=== PATIENT | male | born 1970 | race Caucasian/White ===

== ENCOUNTER 2019-08-19 10:27 | Outpatient (CLI) | payer MEDICARE, MEDICAID, SELFPAY | END 2019-08-19 10:28 | disposition home or self-care (01) | LOC: CHSTREATRM 10:33 | PROVIDERS: PCP Family Medicine; Visit Provider Family Medicine | DX: K59.09 Other constipation (principal) | CPT/HCPCS: 99211; G0463 ==

== ENCOUNTER 2019-12-24 07:30 | Outpatient (CLI) | payer MEDICARE, SELFPAY ==
[2019-12-24 07:47] LABS: Basophils Absolute Auto 0.01 K/mm3 (0.00-0.10); Basophils Percent Auto 0.2 % (0.0-1.0); Eosinophils Absolute Auto 0.06 K/mm3 (0.02-0.50); Hematocrit 39.9 % (40.0-54.0); Hemoglobin 12.8 g/dL (14.0-18.0); Immature Granulocyte Absolute 0.02 K/mm3 (0.00-0.00); Immature Granulocyte Percent A 0.3 % (0.0-0.0); Lymphocytes Percent Auto 28.4 % (18.0-42.0); Mean Corpuscular HGB Conc 32.1 g/dL (32.0-36.0); Mean Corpuscular Hemoglobin 28.4 pg (27.0-31.0); Mean Corpuscular Volume 88.5 fL (78.0-102.0); Mean Platelet Volume 11.3 fl (8.7-11.0); Monocytes Absolute Auto 0.36 K/mm3 (0.10-0.90); Neutrophils Absolute Auto 3.8 K/mm3 (1.7-7.2); Neutrophils Percent Auto 64.1 % (50.0-70.0); Platelet Count Result 229 K/mm3 (150-420); Red Blood Count 4.51 M/mm3 (4.70-6.10); Red Cell Distribution Width 13.3 % (11.6-14.4)
[2019-12-24 08:51] LABS: Alanine Aminotransferase 20 U/L (16-63); Alkaline Phosphatase 91 U/L (46-116); Anion Gap 10.2 mmol/L (7-16); Aspartate Amino Transferase 15 U/L (15-37); Bilirubin,Total 0.2 mg/dL (0.00-1.00); Blood Urea Nitrogen 12 mg/dL (7-18); Calcium 8.9 mg/dL (8.5-10.1); Carbon Dioxide 32 mmol/L (21-32); Chloride 96 mmol/L (98-108); Cholesterol 164 mg/dL (0-200); Creatine Kinase 50 U/L (39-308); Estimated Glomerular Filt Rate > 60; Glucose 95 mg/dL (70-99); HDL Direct 65 mg/dL (40-60); LDL Cholesterol Calculated 84 mg/dL (<130); Osmolality Calculated 277 mOsm/kg (285-295); Potassium 4.2 mmol/L (3.5-5.1); Sodium 134 mmol/L (136-145); Thyroid Stimulating Hormone 2.77 uIU/mL (0.36-3.74); Total Protein 7.6 g/dL (6.4-8.2); Triglycerides 74 mg/dL (0-150)
[2019-12-24 12:55] LABS: Creatinine Urine 83.41 mg/dL (40-278); MALB Creatinine Ratio 4.7 mg/g (0-30)
== END 2019-12-24 07:31 | disposition home or self-care (01) ==
PROVIDERS: PCP Family Medicine; Visit Provider Family Medicine
DX: E78.2 Mixed hyperlipidemia (principal); I10 Essential (primary) hypertension
CPT/HCPCS: 36415; 80053; 80061; 82043; 82550; 84443; 85025

== ENCOUNTER 2020-05-19 07:50 | Outpatient (CLI) | payer MEDICARE, MEDICAID, SELFPAY ==
--- NOTE | ~2020-05-19 | XR_ITS ---
EXAMINATION: XR barium swallow DATE: 05/19/2020 09:22 INDICATION: Dysphagia. Chest pain. TECHNIQUE: The patient drank thick barium, gas-producing crystals, and thin barium. Fluoroscopic spot radiographs of the hypopharynx and esophagus were obtained. A total of 1668 images were recorded. Fl uoroscopy exposure time was 2.1 minutes. COMPARISON: None. FINDINGS: The pharynx is symmetric and without evidence of mass lesion or mucosal irregularity. The e sophagus is normal without mass or stricture. There is mild mass effect upon the posterior wall of th e cervical esophagus resulting from small anterior endplate osteophytes at C5-C6 and C6-C7. Esophagea l motility is normal. There is no hiatal hernia. There was no gastroesophageal reflux with provocativ e maneuvers. IMPRESSION: 1. Mild mass effect upon the posterior wall of the cervical esophagus resulting from anterior endplat e osteophytes in the lower cervical spine which is of doubtful clinical significance. Otherwise unrem arkable esophagram. Reviewed, dictated and finalized at location B. IMPRESSION: 1. Mild mass effect upon the posterior wall of the cervical esophagus resulting from anterior endplate osteophytes in the lower cervical spine which is of silverio btful clinical significance. Otherwise unremarkable esophagram.
--- NOTE | ~2020-05-19 | XR_ITS ---
XR chest 2V DATE: 05/19/2020 08:26 INDICATION: Chest pain. Dysphagia. TECHNIQUE: PA and lateral views COMPARISON: 04/07/2014 2 view chest FINDINGS: Normal heart size. No pulmonary infiltrate or consolidation, pleural effusion or pulmonary congestion or pneumothorax. Diffuse osteopenia. Mild chronic loss of height and anterior wedging of T7. Old rib fractures are sug gested on the right. IMPRESSION: No active cardiopulmonary disease Reviewed, dictated and finalized at location A.
== END 2020-05-19 07:51 | disposition home or self-care (01) ==
LOC: CHSIMG 07:53
PROVIDERS: PCP Family Medicine; Visit Provider Family Medicine
DX: R13.10 Dysphagia, unspecified (principal); R07.89 Other chest pain
CPT/HCPCS: 71046; 74220

== ENCOUNTER 2020-12-07 08:38 | Outpatient (CLI) | payer MEDICARE, SELFPAY ==
[2020-12-07 08:52] LABS: Basophils Absolute Auto 0.02 K/mm3 (0.00-0.10); Basophils Percent Auto 0.3 % (0.0-1.0); Eosinophils Absolute Auto 0.11 K/mm3 (0.02-0.50); Eosinophils Percent Auto 1.6 % (1.0-6.0); Hematocrit 39.4 % (40.0-54.0); Hemoglobin 12.6 g/dL (14.0-18.0); Immature Granulocyte Absolute 0.02 K/mm3 (0.00-0.00); Immature Granulocyte Percent A 0.3 % (0.0-0.0); Lymphocytes Absolute Auto 1.93 K/mm3 (1.10-4.50); Lymphocytes Percent Auto 28.6 % (18.0-42.0); Mean Corpuscular Hemoglobin 28.6 pg (27.0-31.0); Mean Corpuscular Volume 89.3 fL (78.0-102.0); Mean Platelet Volume 11.6 fl (8.7-11.0); Monocytes Absolute Auto 0.46 K/mm3 (0.10-0.90); Monocytes Percent Auto 6.8 % (2.0-11.0); Neutrophils Absolute Auto 4.2 K/mm3 (1.7-7.2); Neutrophils Percent Auto 62.4 % (50.0-70.0); Platelet Count Result 218 K/mm3 (150-420); Red Blood Count 4.41 M/mm3 (4.70-6.10); Red Cell Distribution Width 13.2 % (11.6-14.4); White Blood Count 6.8 K/mm3 (4.8-10.8)
[2020-12-07 09:39] LABS: Alanine Aminotransferase 27 U/L (16-63); Albumin Level 3.9 g/dL (3.4-5.0); Alkaline Phosphatase 103 U/L (46-116); Anion Gap 9 mmol/L (8-16); Aspartate Amino Transferase 11 U/L (15-37); Bilirubin,Total 0.2 mg/dL (0.00-1.00); Blood Urea Nitrogen 20 mg/dL (7-18); Calcium 9.4 mg/dL (8.5-10.1); Carbon Dioxide 29 mmol/L (21-32); Chloride 102 mmol/L (98-108); Cholesterol 177 mg/dL (0-200); Estimated Glomerular Filt Rate > 60; Glucose 98 mg/dL (70-99); HDL Direct 59 mg/dL (40-60); LDL Cholesterol Calculated 100 mg/dL (<130); Osmolality Calculated 292 mOsm/kg (285-295); Potassium 4.6 mmol/L (3.5-5.1); Sodium 140 mmol/L (136-145); Total Protein 8.4 g/dL (6.4-8.2); Triglycerides 89 mg/dL (0-150)
== END 2020-12-07 08:39 | disposition home or self-care (01) ==
LOC: CHSLAB 08:40
PROVIDERS: PCP Family Medicine; Visit Provider Family Medicine
DX: E78.2 Mixed hyperlipidemia (principal); I10 Essential (primary) hypertension
CPT/HCPCS: 36415; 80053; 80061; 85025

== ENCOUNTER 2021-03-06 08:05 | Outpatient (CLI) | payer MEDICARE, SELFPAY ==
[2021-03-06 08:43] LABS: Anion Gap 6 mmol/L (8-16); Blood Urea Nitrogen 18 mg/dL (7-18); Calcium 8.9 mg/dL (8.5-10.1); Carbon Dioxide 33 mmol/L (21-32); Chloride 104 mmol/L (98-108); Estimated Glomerular Filt Rate > 60; Glucose 104 mg/dL (70-99); Osmolality Calculated 297 mOsm/kg (285-295); Potassium 5.2 mmol/L (3.5-5.1); Sodium 143 mmol/L (136-145)
== END 2021-03-06 08:06 | disposition home or self-care (01) ==
LOC: CHSLAB 08:07
PROVIDERS: PCP Family Medicine; Visit Provider Family Medicine
DX: I10 Essential (primary) hypertension (principal)
CPT/HCPCS: 36415; 80048

== ENCOUNTER 2021-06-12 07:50 | Outpatient (CLI) | payer MEDICARE, SELFPAY ==
[2021-06-12 08:07] LABS: Basophils Absolute Auto 0.02 K/mm3 (0.00-0.10); Basophils Percent Auto 0.3 % (0.0-1.0); Eosinophils Absolute Auto 0.06 K/mm3 (0.02-0.50); Eosinophils Percent Auto 0.9 % (1.0-6.0); Hematocrit 41.5 % (40.0-54.0); Hemoglobin 12.7 g/dL (14.0-18.0); Immature Granulocyte Absolute 0.02 K/mm3 (0.00-0.00); Immature Granulocyte Percent A 0.3 % (0.0-0.0); Lymphocytes Absolute Auto 1.24 K/mm3 (1.10-4.50); Lymphocytes Percent Auto 19.3 % (18.0-42.0); Mean Corpuscular HGB Conc 30.6 g/dL (32.0-36.0); Mean Corpuscular Hemoglobin 27.8 pg (27.0-31.0); Mean Corpuscular Volume 90.8 fL (78.0-102.0); Mean Platelet Volume 11.4 fl (8.7-11.0); Monocytes Absolute Auto 0.55 K/mm3 (0.10-0.90); Monocytes Percent Auto 8.6 % (2.0-11.0); Neutrophils Absolute Auto 4.5 K/mm3 (1.7-7.2); Neutrophils Percent Auto 70.6 % (50.0-70.0); Platelet Count Result 216 K/mm3 (150-420); Red Blood Count 4.57 M/mm3 (4.70-6.10); Red Cell Distribution Width 13.8 % (11.6-14.4); White Blood Count 6.4 K/mm3 (4.8-10.8)
[2021-06-12 09:33] LABS: Alanine Aminotransferase 20 U/L (16-63); Albumin Level 3.5 g/dL (3.4-5.0); Alkaline Phosphatase 108 U/L (46-116); Anion Gap 10 mmol/L (8-16); Aspartate Amino Transferase 11 U/L (15-37); Bilirubin,Total 0.3 mg/dL (0.00-1.00); Blood Urea Nitrogen 20 mg/dL (7-18); Calcium 8.8 mg/dL (8.5-10.1); Carbon Dioxide 31 mmol/L (21-32); Chloride 103 mmol/L (98-108); Estimated Glomerular Filt Rate > 60; Glucose 95 mg/dL (70-99); Osmolality Calculated 300 mOsm/kg (285-295); Potassium 4.3 mmol/L (3.5-5.1); Sodium 144 mmol/L (136-145); Total Protein 7.7 g/dL (6.4-8.2)
[2021-06-12 09:53] LABS: Thyroid Stimulating Hormone 3.81 uIU/mL (0.36-3.74)
== END 2021-06-12 07:51 | disposition home or self-care (01) ==
LOC: CHSLAB 07:52
PROVIDERS: PCP Family Medicine; Visit Provider Family Medicine
DX: I10 Essential (primary) hypertension (principal)
CPT/HCPCS: 36415; 80053; 84443; 85025

== ENCOUNTER 2021-09-18 07:55 | Outpatient (CLI) | payer MEDICARE, SELFPAY ==
[2021-09-18 08:25] LABS: Basophils Absolute Auto 0.01 K/mm3 (0.00-0.10); Basophils Percent Auto 0.2 % (0.0-1.0); Eosinophils Absolute Auto 0.07 K/mm3 (0.02-0.50); Eosinophils Percent Auto 1.2 % (1.0-6.0); Hematocrit 40.3 % (40.0-54.0); Hemoglobin 12.5 g/dL (14.0-18.0); Immature Granulocyte Absolute 0.02 K/mm3 (0.00-0.00); Immature Granulocyte Percent A 0.4 % (0.0-0.0); Lymphocytes Absolute Auto 1.84 K/mm3 (1.10-4.50); Lymphocytes Percent Auto 32.6 % (18.0-42.0); Mean Corpuscular Hemoglobin 28.1 pg (27.0-31.0); Mean Corpuscular Volume 90.6 fL (78.0-102.0); Mean Platelet Volume 11.8 fl (8.7-11.0); Monocytes Absolute Auto 0.35 K/mm3 (0.10-0.90); Monocytes Percent Auto 6.2 % (2.0-11.0); Neutrophils Absolute Auto 3.4 K/mm3 (1.7-7.2); Neutrophils Percent Auto 59.4 % (50.0-70.0); Platelet Count Result 202 K/mm3 (150-420); Red Blood Count 4.45 M/mm3 (4.70-6.10); Red Cell Distribution Width 14.6 % (11.6-14.4); White Blood Count 5.7 K/mm3 (4.8-10.8)
[2021-09-18 09:36] LABS: Alanine Aminotransferase 24 U/L (16-63); Albumin Level 3.6 g/dL (3.4-5.0); Alkaline Phosphatase 94 U/L (46-116); Anion Gap 8 mmol/L (8-16); Aspartate Amino Transferase 13 U/L (15-37); Bilirubin,Total 0.2 mg/dL (0.00-1.00); Blood Urea Nitrogen 22 mg/dL (7-18); Calcium 8.6 mg/dL (8.5-10.1); Carbon Dioxide 30 mmol/L (21-32); Chloride 105 mmol/L (98-108); Estimated Glomerular Filt Rate > 60; Free T4 Free Thyroxine 0.69 ng/dL (0.76-1.46); Glucose 95 mg/dL (70-99); Osmolality Calculated 299 mOsm/kg (285-295); Potassium 4.6 mmol/L (3.5-5.1); Prostate Specific Antigen 0.3 ng/mL (< OR = 4.0); Sodium 143 mmol/L (136-145); Thyroid Stimulating Hormone 5.25 uIU/mL (0.36-3.74); Total Protein 7.4 g/dL (6.4-8.2)
[2021-09-21 04:43] LABS: Thyroglobulin 3.4 ng/mL (2.8-40.9); Thyroglobulin Antibodies <1 IU/mL (<=1)
== END 2021-09-18 07:56 | disposition home or self-care (01) ==
LOC: CHSLAB 07:57
PROVIDERS: PCP Family Medicine; Visit Provider Family Medicine
DX: R94.6 Abnormal results of thyroid function studies (principal); I10 Essential (primary) hypertension; Z12.5 Encounter for screening for malignant neoplasm of prostate
CPT/HCPCS: 36415; 80053; 84153; 84432; 84439; 84443; 85025; 86800; G0103

== ENCOUNTER 2021-09-19 13:31 | Outpatient (NON) | payer MEDICARE, SELFPAY ==
[2021-09-19 14:01] LABS: Creatinine Urine 149.13 mg/dL (40-278); MALB Creatinine Ratio 8.7 mg/g (0-30); Microalbumin Urine Random < 13.0 mg/L
== END 2021-09-19 13:32 | disposition home or self-care (01) ==
LOC: CHSLAB 13:33
PROVIDERS: Visit Provider Family Medicine
DX: I10 Essential (primary) hypertension (principal)
CPT/HCPCS: 82043

== ENCOUNTER 2021-10-28 17:22 | Emergency (ER) | payer MEDICARE, MEDICAID, SELFPAY ==
--- NOTE | ~2021-10-28 | XR_ITS ---
EXAMINATION: XR chest 2V Exam Date/Time: 10/28/2021 17:50 CDT CLINICAL HISTORY: LT sided chest pain. hx smoker/emphysema Comparison: 05/19/2020. RESULT: Lines, tubes, and devices: None. Lungs and pleura: Clear. Cardiomediastinal silhouette: Stable cardiomediastinal silhouette. Other: No acute osseous or upper abdominal finding. IMPRESSION: No acute cardiopulmonary process. Reviewed, dictated and finalized at location K.
[2021-10-28 17:25] VITALS: BP 130/85; PULSE 72; RESP 20; TEMP 37
--- NOTE | 2021-10-28 17:33 | ED.CHESTPAIN ---
HPI - Chest Pain General Chief Complaint: Unspecified Stated Complaint: chest pain Time Seen by Provider: 10/28/21 17:33 Source: patient and RN notes reviewed Mode of arrival: ambulatory Limitations: no limitations History of Present Illness HPI narrative: patient started having some chest wall pain earlier this afternoon. He finally told them at the assisted living home that his chest was hurting. Staff there thought he had laid on it since he is always on that left side. He denies any other associated symptoms. No history of any previous heart disease. Does have history hyperlipidemia and hypertension. MD complaint: chest pain Onset (ago): hour(s) (3.5) Timing of current episode: constant Onset: during rest Pain location: left chest Pain radiation: none Severity: moderate Quality: aching and dull Relieving factors: nothing Treatment prior to arrival: none Related Data Home Medications Medication Instructions Recorded Confirmed aspirin 81 mg capsule 81 mg PO DAILY 05/10/21 05/22/21 benztropine 1 mg tablet 1 mg PO BID 05/10/21 05/22/21 carbamazepine 400 mg 400 mg PO Q12H 05/10/21 05/22/21 tablet,extended release,12 hr carvedilol 3.125 mg tablet 3.125 mg PO Q12H 05/10/21 05/22/21 docusate sodium 100 mg capsule 100 mg PO BID 05/10/21 05/22/21 famotidine 40 mg tablet 40 mg PO DAILY 05/10/21 05/22/21 loratadine 10 mg tablet 10 mg PO DAILY 05/10/21 05/22/21 lorazepam 1 mg tablet 1 mg PO BID PRN 05/10/21 05/22/21 olanzapine 20 mg tablet 20 mg PO DAILY 05/10/21 05/22/21 pravastatin 80 mg tablet 80 mg PO DAILY 05/10/21 05/22/21 sertraline 100 mg tablet 100 mg PO DAILY 05/10/21 05/22/21 sodium chloride 1 gram tablet 1,000 mg PO DAILY 05/10/21 05/22/21 Allergies Allergy/AdvReac Type Severity Reaction Status Date / Time No Known Allergies Allergy Verified 05/17/21 10:06 Review of Systems Review of Systems: All systems reviewed & are unremarkable except as noted in HPI and below Constitutional: Constitutional: Denies chills and Denies fever(s) Cardiovascular: Cardiovascular: Reports as per HPI and Denies diaphoresis Respiratory: Respiratory: Denies cough and Denies dyspnea Gastrointestinal: Gastrointestinal: Denies diarrhea, Denies nausea and Denies vomiting PMFSH Past Medical History Medical History History of depression History of high cholesterol History of hypertension History of seizure Social History Social History Smoking status: Former smoker Additional occupation/education comments: Disabled Exam Const: General: healthy appearing, no acute distress and alert Nutritional Appearance: well nourished Orientation/consciousness: patient oriented x3 HENMT: Head: normal to inspection Ears: external ears normal Eyes: Conjunctivae: conjunctivae normal Pupils: Equal, round and reactive pupils present EOM: EOMs intact bilaterally Neck: Neck: normal visual inspection Chest: Chest palpation & inspection: normal inspection of the chest and tenderness ( left anterior chest wall) Resp: Effort & Inspection: normal respiratory effort Auscultation: clear to auscultation bilaterally Cardio: Rate: regular rate Rhythm: regular rhythm GI: GI Palp: Yes Soft to palpation, No Tenderness to palpation present (GI) and No Guarding due to palpation present (GI) Auscultation: normal bowel sounds Back/Spine/Pelvis: Cervical Spine: cervical ROM normal Thoracic/Lumbar Spine: thoraco-lumbar ROM normal Skin: General skin exam: normal color Rashes: no rashes Neuro: General: patient oriented x3, moves all extremities, no focal motor deficits and CN's II-XI intact bilaterally Speech: normal speech Gait exam (Neuro): Normal gait present Extrem: General: normal to inspection Psych: Appearance: grossly normal and well kempt Mental Status: mental status grossly normal Affect: normal affect Attitude: coope
--- NOTE | 2021-10-28 17:35 | ECG_ITS ---
Measurements Intervals [place] Rate: 72 P: 33 NE: 148 QRS: 30 QRSD: 104 T: 45 QT: 370 QTc: 405 Interpretive Statements SINUS RHYTHM INTRAVENTRICULAR CONDUCTION DELAY ABNORMAL ECG NO PREVIOUS ECG AVAILABLE FOR COMPARISON Electronically Signed On 10-29-2021 15:48:52 CDT by Quoc Drew M.D.
[2021-10-28 17:54] VITALS: BP 118/80; PULSE 72; RESP 16; O2SAT 98
--- NOTE | 2021-10-28 17:55 | PC.NURSE ---
REFUSING IV, AWARE
[2021-10-28] MEDS: ASPIRIN 81 MG CHEWABLE TABLET 324 MG PO (18:00)
[2021-10-28 18:02] LABS: Basophils Absolute Auto 0.01 K/mm3 (0.00-0.10); Basophils Percent Auto 0.2 % (0.0-1.0); Eosinophils Percent Auto 1.8 % (1.0-6.0); Hematocrit 37.6 % (40.0-54.0); Hemoglobin 11.9 g/dL (14.0-18.0); Immature Granulocyte Absolute 0.01 K/mm3 (0.00-0.00); Immature Granulocyte Percent A 0.2 % (0.0-0.0); Lymphocytes Absolute Auto 2.08 K/mm3 (1.10-4.50); Lymphocytes Percent Auto 36.6 % (18.0-42.0); Mean Corpuscular HGB Conc 31.6 g/dL (32.0-36.0); Mean Corpuscular Hemoglobin 28.5 pg (27.0-31.0); Mean Platelet Volume 11.4 fl (8.7-11.0); Monocytes Absolute Auto 0.46 K/mm3 (0.10-0.90); Monocytes Percent Auto 8.1 % (2.0-11.0); Neutrophils Percent Auto 53.1 % (50.0-70.0); Platelet Count Result 190 K/mm3 (150-420); Red Blood Count 4.18 M/mm3 (4.70-6.10); Red Cell Distribution Width 14.2 % (11.6-14.4); White Blood Count 5.7 K/mm3 (4.8-10.8)
[2021-10-28 18:15] LABS: INR 1.1; Prothrombin Time 11.5 Seconds (9.50-12.10)
[2021-10-28 18:20] LABS: Alanine Aminotransferase 15 U/L (16-63); Albumin Level 3.4 g/dL (3.4-5.0); Alkaline Phosphatase 94 U/L (46-116); Anion Gap 7 mmol/L (8-16); Aspartate Amino Transferase 14 U/L (15-37); Bilirubin,Total 0.1 mg/dL (0.00-1.00); Blood Urea Nitrogen 16 mg/dL (7-18); Calcium 8.3 mg/dL (8.5-10.1); Carbon Dioxide 31 mmol/L (21-32); Chloride 99 mmol/L (98-108); Estimated CRCL calculation 108 ml/min; Estimated Glomerular Filt Rate > 60; Glucose 100 mg/dL (70-99); Osmolality Calculated 285 mOsm/kg (285-295); Sodium 137 mmol/L (136-145); Total Protein 7.2 g/dL (6.4-8.2); Troponin I 7.5 ng/L (0.00-60.4)
[2021-10-28 18:33] VITALS: BP 119/70; PULSE 72; RESP 18; TEMP 36.4; O2SAT 98
== END 2021-10-28 18:48 | disposition home or self-care (01) ==
PROVIDERS: Emergency Provider Emergency Medicine; PCP Family Medicine
DX: R07.89 Other chest pain (principal)
CPT/HCPCS: 36415; 71046; 80053; 84484; 85025; 85610; 93005; 99284; A9270

== ENCOUNTER 2022-09-16 14:45 | Outpatient (CLI) | payer MEDICARE, MEDICAID, SELFPAY ==
--- NOTE | ~2022-09-16 | XR_ITS ---
EXAMINATION: XR abdomen obstructive series DATE: 09/16/2022 15:08 INDICATION: Mid abdominal pain. Constipation. TECHNIQUE: Supine and upright views of the abdomen. FINDINGS: 01/05/2018 The visualized lung parenchyma is normal.. There is a nonobstructive bowel gas pattern. There is feca l impaction of the colon and rectum. There is no free air. IMPRESSION: 1. Fecal impaction of the colon and rectum. Reviewed, dictated and finalized at location B. BENDING MACHINE OPERATOR
== END 2022-09-16 14:46 | disposition home or self-care (01) ==
LOC: CHSIMG 14:47
PROVIDERS: PCP Family Medicine; Visit Provider Family Medicine
DX: R10.84 Generalized abdominal pain (principal); K56.41 Fecal impaction
CPT/HCPCS: 74019

== ENCOUNTER 2022-09-19 10:14 | Emergency (ER) | payer MEDICARE, MEDICAID, SELFPAY ==
--- NOTE | ~2022-09-19 | CT_ITS ---
EXAMINATION: CT brain wo con DATE: 09/19/2022 10:55 INDICATION: Headache after trauma. Status post recent fall. TECHNIQUE: Computed tomography (CT) of the head was performed without intravenous contrast. The dose- length product was 681.00 mGy-cm. Automated exposure control and iterative reconstruction technique were employed. COMPARISON: CT dated 03/31/2014 FINDINGS: Brain parenchymal volume is normal for age. No ventriculomegaly or midline shift. Basilar c isterns are patent. No acute intracranial hemorrhage, infarction, mass or mass effect. Basilar cister ns are patent. Paranasal sinuses and mastoids are pneumatized. There is intracranial atherosclerosis. IMPRESSION: 1. No acute intracranial abnormality. Reviewed, dictated and finalized at location L. ING MATCHER AND ASSEMBLER
--- NOTE | ~2022-09-19 | XR_ITS ---
XR knee LT 3V 09/19/2022 10:56 Indication: Left knee pain Procedure: 3 views left knee Comparison: No prior studies for comparison. Findings: No fracture, subluxation or dislocation. No significant joint effusion. No foreign bodies. Impression: 1: No acute fracture. Reviewed, dictated and finalized at location L. MACY TECHNICIAN ASSISTANT Impression: 1: No acute fracture.
--- NOTE | ~2022-09-19 | CT_ITS ---
EXAMINATION: CT cervical spine wo con DATE: 09/19/2022 10:54 INDICATION: Neck pain after recent fall TECHNIQUE: Computed tomography (CT) of the cervical spine was performed without intravenous contrast. The dose-length product was 440 mGy-cm. Automated exposure control and iterative reconstruction tech [employer] were employed. COMPARISON: CT dated 03/31/2014 FINDINGS: Normal cervical alignment. There is mild degenerative disc disease at C5-6. Mild chronic an terior wedging of C6. Craniovertebral junction within normal limits. Odontoid process is normal. Mild chronic wedge deformity of C7. Mild superior endplate compression deformity of T2, likely chronic. M ild multilevel facet and uncinate hypertrophy no paraspinal soft tissue abnormality.. Mild dextrocurv ature of the cervical spine. IMPRESSION: 1. No acute abnormality of the cervical spine. 2: Mild compression deformities of C6, C7 and T2, likely chronic. Reviewed, dictated and finalized at location L. REPAIRER APPRENTICE
--- NOTE | ~2022-09-19 | CT_ITS ---
EXAMINATION: CT abdomen pelvis w con DATE: 09/19/2022 12:05 INDICATION: Right abdominal pain. TECHNIQUE: Computed tomography (CT) of the abdomen and pelvis was performed with 100 mL Omnipaque 350 intravenous contrast. Automated exposure control and iterative reconstruction technique were employe d. The dose-length product was 574.70 mGy-cm. COMPARISON: CT 01/17/2015 FINDINGS: The visualized portions of the lung bases demonstrate mild atelectasis. Bilateral pleural t hickening is noted. There are calcified pleural plaques on the right. The heart size is normal. No pe ricardial effusion. There is a small sliding hiatal hernia. The liver, gallbladder, spleen, pancreas, adrenal glands, and kidneys are normal. Stool distends the rectum. There is a large volume of stool in the colon. The appendix is not visualized. There are no pathologically enlarged lymph nodes. There is no free intraperitoneal fluid. There are old healed right rib fractures. There is mild thoracic a nd lumbar spondylosis. IMPRESSION: 1. Large volume of stool in the colon with distention of the rectum. Reviewed, dictated and finalized at location A. M1A1 TANK CREWMAN
[2022-09-19 10:15] VITALS: BP 125/73; PULSE 89; RESP 16; TEMP 36.9; O2SAT 97
[2022-09-19 10:21] VITALS: BP 125/73; PULSE 89; RESP 12; TEMP 36.9; O2SAT 97
--- NOTE | 2022-09-19 10:35 | ECG_ITS ---
Measurements Intervals [place] Rate: 85 P: 38 MI: 131 QRS: 38 QRSD: 117 T: 24 QT: 380 QTc: 453 Interpretive Statements SINUS RHYTHM INTRAVENTRICULAR CONDUCTION DELAY BORDERLINE ST-T WAVE ABNORMALITY- ANTEROLAT/INF LEADS BORDERLINE ECG COMPARED TO ECG 10/28/2021 17:54:56 ST-TWAVE ABNORMALITY NOW PRESENT Electronically Signed On 09-19-2022 11:14:14 MANAGER GLOBAL by Sergio Haskins D.O.
[2022-09-19 11:05] LABS: Basophils Absolute Auto 0.01 K/mm3 (0.00-0.10); Basophils Percent Auto 0.1 % (0.0-1.0); Eosinophils Absolute Auto 0.01 K/mm3 (0.02-0.50); Eosinophils Percent Auto 0.1 % (1.0-6.0); Hematocrit 36.4 % (40.0-54.0); Immature Granulocyte Absolute 0.03 K/mm3 (0.00-0.00); Immature Granulocyte Percent A 0.3 % (0.0-0.0); Lymphocytes Absolute Auto 1.14 K/mm3 (1.10-4.50); Lymphocytes Percent Auto 12.8 % (18.0-42.0); Mean Corpuscular Hemoglobin 29.4 pg (27.0-31.0); Mean Corpuscular Volume 89.2 fL (78.0-102.0); Mean Platelet Volume 11.8 fl (8.7-11.0); Monocytes Absolute Auto 0.61 K/mm3 (0.10-0.90); Monocytes Percent Auto 6.9 % (2.0-11.0); Neutrophils Absolute Auto 7.1 K/mm3 (1.7-7.2); Neutrophils Percent Auto 79.8 % (50.0-70.0); Platelet Count Result 227 K/mm3 (150-420); Red Blood Count 4.08 M/mm3 (4.70-6.10); Red Cell Distribution Width 13.3 % (11.6-14.4); White Blood Count 8.9 K/mm3 (4.8-10.8)
[2022-09-19] MEDS: TETANUS,DIPHTHERIA,AC PERTUSSIS ADULT 0.5 ML (ADACEL) IM (11:16)
[2022-09-19] MEDS: KETOROLAC 30 MG/ML VIAL (*BKC) IV PUSH (11:17)
--- NOTE | 2022-09-19 11:23 | PC.NURSE ---
Wounds on both legs cleaned with wound spray and hydrogen peroxide 1105
[2022-09-19 11:24] LABS: Alanine Aminotransferase 17 U/L (16-63); Alkaline Phosphatase 110 U/L (46-116); Anion Gap 9 mmol/L (8-16); Aspartate Amino Transferase 16 U/L (15-37); Bilirubin,Total 0.4 mg/dL (0.00-1.00); Blood Urea Nitrogen 19 mg/dL (7-18); Carbon Dioxide 29 mmol/L (21-32); Chloride 103 mmol/L (98-108); Estimated CRCL calculation 92 ml/min; Estimated Glomerular Filt Rate > 60; Glucose 109 mg/dL (70-99); INR 1.1; Lipase 45 U/L (16-77); Osmolality Calculated 295 mOsm/kg (285-295); Partial Thromboplastin Time 27.8 SEC (23.90-30.70); Potassium 4.7 mmol/L (3.5-5.1); Prothrombin Time 12.2 Seconds (9.50-12.10); Sodium 141 mmol/L (136-145)
[2022-09-19 11:28] LABS: Lactic Acid Reflex 1.5 mmol/L (0.4-2.0)
[2022-09-19 12:18] VITALS: BP 142/92; PULSE 86; RESP 12; O2SAT 97
--- NOTE | 2022-09-19 12:19 | PC.NURSE ---
Second attempt on collecting urine specimen 1213
--- NOTE | 2022-09-19 12:59 | ED.FALL ---
HPI - Fall General Chief Complaint: Fall Stated Complaint: leg injury Time Seen by Provider: 09/19/22 10:20 Source: patient and EMS Mode of arrival: ambulatory Limitations: no limitations History of Present Illness HPI Narrative: This is a 52-year-old gentleman from [facility] presents after he had a fall earlier this morning after he slipped in the bathroom and causing some neck pain. Otherwise no symptoms prior to his fall I no nausea vomiting no headache no blurry vision no palpitations no chest pain no shortness of breath. The patient has a history of depression hypertension, and has had some lower abdominal discomfort and his primary had ordered an abdominal CT scan with contrast stat, but since the patient presented to the ER abdominal CT was ordered and performed here. There is no dysuria no flank pain no hematuria no fever chills. Patient has been having episodes of constipation. MD complaint: fall Onset (ago): hour(s) Fall from: standing Fall witnessed: no Place fall occurred: [facility] Loss of consciousness: none Prolonged down time: no Context: tripped/slipped Location of injury: head Severity: mild Severity scale (1-10): 6 Related Data Home Medications Medication Instructions Recorded Confirmed aspirin 81 mg capsule 81 mg PO DAILY 05/10/21 09/19/22 benztropine 1 mg tablet 1 mg PO BID 05/10/21 09/19/22 carbamazepine 400 mg 400 mg PO Q12H 05/10/21 09/19/22 tablet,extended release,12 hr (Tegretol XR) carvedilol 3.125 mg tablet (Coreg) 3.125 mg PO Q12H 05/10/21 09/19/22 docusate sodium 100 mg capsule 100 mg PO BID 05/10/21 09/19/22 (Colace) famotidine 40 mg tablet (Pepcid) 40 mg PO DAILY 05/10/21 09/19/22 loratadine 10 mg tablet 10 mg PO DAILY 05/10/21 09/19/22 lorazepam 1 mg tablet 1 mg PO BID PRN Anxiety 05/10/21 09/19/22 olanzapine 20 mg tablet (Zyprexa) 20 mg PO DAILY 05/10/21 09/19/22 pravastatin 80 mg tablet 80 mg PO DAILY 05/10/21 09/19/22 sertraline 100 mg tablet (Zoloft) 100 mg PO DAILY 05/10/21 09/19/22 sodium chloride 1 gram tablet 1,000 mg PO DAILY 05/10/21 09/19/22 Allergies Allergy/AdvReac Type Severity Reaction Status Date / Time No Known Allergies Allergy Verified 09/19/22 10:20 Review of Systems Review of Systems: All systems reviewed & are unremarkable except as noted in HPI and below PMFSH Past Medical History Medical History History of depression History of high cholesterol History of hypertension History of seizure Social History Social History Smoking status: Former smoker Living arrangements: assisted living Occupation/Education: other Additional occupation/education comments: Disabled Exam Const: General: healthy appearing, no acute distress and alert Nutritional Appearance: well nourished Limitations: no limitations and altered mental status HENMT: Head: normal to inspection Face and sinus: normal facial exam Mouth: Yes Normal oral and palatal mucosa present Eyes: Conjunctivae: conjunctivae normal Pupils: Equal, round and reactive pupils present EOM: EOMs intact bilaterally Direct Ophthalmoscopy: no photophobia Neck: Neck: normal visual inspection Chest: Chest palpation & inspection: normal inspection of the chest Resp: Effort & Inspection: normal respiratory effort Auscultation: clear to auscultation bilaterally Cardio: Rate: regular rate Rhythm: regular rhythm GI: Auscultation: normal bowel sounds : General: Yes bladder normal to palpation Urinary Catheter: Urinary Catheter: patent and draining Back/Spine/Pelvis: Back: no CVA tenderness Skin: General skin exam: normal color Rashes: no rashes Wounds: no wounds Neuro: General: patient oriented x3 and moves all extremities Speech: normal speech Extrem: General: normal to inspection Psych: Affect: normal affect Course Course Emergency [facility]
[2022-09-19 13:15] VITALS: BP 131/87; PULSE 90; RESP 16; TEMP 36.6; O2SAT 97
== END 2022-09-19 13:30 | disposition home or self-care (01) ==
PROVIDERS: Emergency Provider Emergency Medicine
DX: S16.1XXA Strain of muscle, fascia and tendon at neck level, initial encounter (principal); K59.00 Constipation, unspecified; I10 Essential (primary) hypertension; F41.9 Anxiety disorder, unspecified; Z87.891 Personal history of nicotine dependence; Z79.82 Long term (current) use of aspirin; Z23 Encounter for immunization; W01.0XXA Fall on same level from slipping, tripping and stumbling without subsequent striking against object, initial encounter; Y92.121 Bathroom in nursing home as the place of occurrence of the external cause
CPT/HCPCS: 36415; 70450; 72125; 73562; 74177; 80053; 83605; 83690; 84484; 85025; 85610; 85730; 90471; 90715; 93005; 96374; 99284; J1885; Q9967

== ENCOUNTER 2023-01-20 06:56 | Outpatient (CLI) | payer MEDICARE, SELFPAY ==
[2023-01-20 07:30] LABS: Basophils Absolute Auto 0.02 K/mm3 (0.00-0.10); Basophils Percent Auto 0.4 % (0.0-1.0); Hematocrit 39.1 % (40.0-54.0); Hemoglobin 12.8 g/dL (14.0-18.0); Immature Granulocyte Absolute 0.01 K/mm3 (0.00-0.00); Immature Granulocyte Percent A 0.2 % (0.0-0.0); Lymphocytes Absolute Auto 1.49 K/mm3 (1.10-4.50); Mean Corpuscular HGB Conc 32.7 g/dL (32.0-36.0); Mean Corpuscular Hemoglobin 28.1 pg (27.0-31.0); Mean Corpuscular Volume 85.7 fL (78.0-102.0); Mean Platelet Volume 10.9 fl (8.7-11.0); Monocytes Absolute Auto 0.42 K/mm3 (0.10-0.90); Monocytes Percent Auto 8.5 % (2.0-11.0); Neutrophils Absolute Auto 2.8 K/mm3 (1.7-7.2); Neutrophils Percent Auto 56.9 % (50.0-70.0); Platelet Count Result 201 K/mm3 (150-420); Red Blood Count 4.56 M/mm3 (4.70-6.10); Red Cell Distribution Width 13.8 % (11.6-14.4)
[2023-01-20 08:44] LABS: Alanine Aminotransferase 19 U/L (16-63); Albumin Level 3.8 g/dL (3.4-5.0); Alkaline Phosphatase 98 U/L (46-116); Anion Gap 8 mmol/L (8-16); Aspartate Amino Transferase 12 U/L (15-37); Bilirubin,Total 0.4 mg/dL (0.00-1.00); Blood Urea Nitrogen 11 mg/dL (7-18); Calcium 8.3 mg/dL (8.5-10.1); Carbon Dioxide 29 mmol/L (21-32); Chloride 91 mmol/L (98-108); Estimated Glomerular Filt Rate > 60; Free T4 Free Thyroxine 0.94 ng/dL (0.76-1.46); Glucose 100 mg/dL (70-99); Osmolality Calculated 265 mOsm/kg (285-295); Sodium 128 mmol/L (136-145); Thyroid Stimulating Hormone 2.33 uIU/mL (0.36-3.74); Total Protein 7.3 g/dL (6.4-8.2)
== END 2023-01-20 06:57 | disposition home or self-care (01) ==
LOC: CHSLAB 06:58
PROVIDERS: PCP Family Medicine; Visit Provider Family Medicine
DX: I10 Essential (primary) hypertension (principal); E03.9 Hypothyroidism, unspecified
CPT/HCPCS: 36415; 80053; 84439; 84443; 85025

== ENCOUNTER 2023-01-23 13:43 | Outpatient (NON) | payer MEDICARE, MEDICAID, SELFPAY ==
[2023-01-23 14:01] LABS: Appearance Urine Clear (Clear); Bilirubin Urine Negative (Negative); Blood Urine Negative (Negative); Color Urine Light Yellow (Yellow); Glucose Urine UA Negative (Negative); Ketones Urine Negative (Negative); Leukocyte Esterase Ur Negative (Negative); Nitrate Urine Negative (Negative); Protein Urine Negative (Negative); Specific Grav Ur 1.015 (1.010-1.020)
[2023-01-23 14:04] LABS: Add Urine Microscopic? NO
[2023-01-23 14:07] LABS: Creatinine Urine 79.79 mg/dL (40-278); MALB Creatinine Ratio 16.2 mg/g (0-30); Microalbumin Urine Random < 13.0 mg/L
== END 2023-01-23 13:44 | disposition home or self-care (01) ==
LOC: CHSLAB 13:46
PROVIDERS: Visit Provider Family Medicine
DX: I10 Essential (primary) hypertension (principal)
CPT/HCPCS: 81003; 82043

== ENCOUNTER 2023-01-29 07:07 | Outpatient (CLI) | payer MEDICARE, SELFPAY ==
[2023-01-29 07:43] LABS: Anion Gap 9 mmol/L (8-16); Blood Urea Nitrogen 11 mg/dL (7-18); Calcium 8.5 mg/dL (8.5-10.1); Carbon Dioxide 29 mmol/L (21-32); Chloride 100 mmol/L (98-108); Estimated Glomerular Filt Rate > 60; Glucose 105 mg/dL (70-99); Osmolality Calculated 285 mOsm/kg (285-295); Potassium 4.1 mmol/L (3.5-5.1); Sodium 138 mmol/L (136-145)
== END 2023-01-29 07:08 | disposition home or self-care (01) ==
LOC: CHSLAB 07:09
PROVIDERS: PCP Family Medicine; Visit Provider Family Medicine
DX: I10 Essential (primary) hypertension (principal)
CPT/HCPCS: 36415; 80048

== ENCOUNTER 2023-04-01 07:02 | Outpatient (CLI) | payer MEDICARE, SELFPAY ==
[2023-04-01 07:51] LABS: Anion Gap 9 mmol/L (8-16); Blood Urea Nitrogen 17 mg/dL (7-18); Calcium 8.9 mg/dL (8.5-10.1); Carbon Dioxide 30 mmol/L (21-32); Chloride 101 mmol/L (98-108); Estimated Glomerular Filt Rate > 60; Glucose 108 mg/dL (70-99); Osmolality Calculated 292 mOsm/kg (285-295); Potassium 4.1 mmol/L (3.5-5.1); Sodium 140 mmol/L (136-145)
== END 2023-04-01 07:03 | disposition home or self-care (01) ==
LOC: CHSLAB 07:03
PROVIDERS: PCP Family Medicine; Visit Provider Family Medicine
DX: J44.9 Chronic obstructive pulmonary disease, unspecified (principal)
CPT/HCPCS: 36415; 80048

== ENCOUNTER 2023-07-28 06:48 | Inpatient (IN) | payer MEDICARE, MEDICAID, SELFPAY ==
[2023-07-28] VITALS (16 sets, daily range): BP systolic 90–124; BP diastolic 72–84; PULSE 87–107; RESP 14–18; TEMP 35.8–36.4; O2SAT 82–100
--- NOTE | ~2023-07-28 | XR_ITS ---
Right foot Technique: AP, oblique, and lateral views were obtained. Clinical History: Pain Findings: No acute fracture or dislocation is seen. Osseous alignment is anatomic. Joint spaces are p reserved without erosive or degenerative change. Soft tissues are unremarkable. Impression: Unremarkable right foot radiographs. Reviewed, dictated and finalized at location . RVISOR BEET END Impression: Unremarkable right foot radiographs.
--- NOTE | ~2023-07-28 | CT_ITS ---
EXAMINATION: CT abdomen pelvis wo con DATE: 08/03/2023 09:19 INDICATION: Lower abdominal pain TECHNIQUE: Computed tomography (CT) of the abdomen and pelvis was performed without intravenous contr ast. The dose-length product (DLP) was 471.21 mGy-cm. Automated exposure control and iterative recons truction technique were employed. COMPARISON: 07/28/2023 FINDINGS: Minimal dependent atelectasis is present in the lung bases. The heart size is normal. There are trace pleural effusions. There are calcified pleural plaques of the right lung base. The liver, spleen, pancreas, gallbladder, and adrenal glands are normal. The kidneys are unremarkable. There is calcified atherosclerosis of the aorta and many of the other arteries. No pathologically enlarged abd ominal or pelvic lymph nodes are identified. There is fecal impaction of the rectum with slight impro vement since the comparison examination. The colon remains distended with decrease in volume of colon ic stool. There is a short segment of wall thickening of the sigmoid colon which is decreased in pascale th since the comparison examination. There is mild lumbar spondylosis. IMPRESSION: 1. Persistent fecal impaction of the rectum with slight improvement. 2. Persistent colonic distention with decrease in volume of colonic stool. 3. Short segment of wall thickening of the sigmoid colon, decreased in length since the comparison ex amination, possible mild colitis. Recommend correlation with colonoscopy history. Reviewed, dictated and finalized at location F. RAL SALES MANAGER IMPRESSION: 1. Persistent fecal impaction of the rectum with slight improvement. 2. Persistent colonic distention with decrease in volume of colonic stool. 3. Short segment of wall thickening of the sigmoid colon, decreased in length s jean the comparison examination, possible mild colitis. Recommend correlation w ith colonoscopy history.
--- NOTE | ~2023-07-28 | CT_ITS ---
EXAMINATION:CT diagnostic chest wo con DATE: 07/28/2023 09:24 INDICATION: Rib fracture. Fall. Chest pain. TECHNIQUE: Computed tomography (CT) of the chest was performed without intravenous contrast. Automate d exposure control and iterative reconstruction technique were employed. The dose-length product (DLP ) was 166.10 mGy-cm. COMPARISON: Chest 2 views 07/28/23, chest CT 07/04/2016 FINDINGS: There is mild atelectasis bilaterally. There is mild scarring in the upper lobes. Calcified left lung nodules are consistent with old granulomatous disease. No pleural effusion. There is calci fied atherosclerosis of the aorta and many of the other arteries. The heart size is normal. There are coronary artery calcifications. No pericardial effusion. There are old healed fractures of right sec ond-12th ribs. There are multiple old healed left rib fractures. There are healing fractures of left third-fifth ribs with callus formation. IMPRESSION: 1. Healing subacute fractures of left third-fifth ribs. No acute rib fracture. Reviewed, dictated and finalized at location A. UME DESIGN TEACHER
--- NOTE | ~2023-07-28 | XR_ITS ---
Clinical Indication: Sepsis PA and lateral views of the chest: Comparison: 10/28/2021 Findings: The lungs are clear, without evidence of focal consolidation or pleural effusion. Cardiome diastinal silhouette is within normal limits. Probable fracture to lateral right fourth rib. Impression: Clear lungs. Suspected fracture at the lateral right fourth rib. Reviewed, dictated and finalized at [facility]. FOURTH Impression: Clear lungs. Suspected fracture at the lateral right fourth rib.
--- NOTE | ~2023-07-28 | XR_ITS ---
EXAMINATION: XR abdomen/kub 1V DATE: 07/31/2023 08:47 INDICATION: Abdominal distention. TECHNIQUE: A supine view of the abdomen on 2 radiographs was obtained. COMPARISON: Abdomen radiographs 09/16/2022, CT abdomen and pelvis 07/28/2023 FINDINGS: There is a large volume of stool in the colon. The colon is distended. The small bowel is n ormal in caliber. IMPRESSION: 1. Large volume of stool in the colon with distention of the colon, consistent with adynamic ileus. Reviewed, dictated and finalized at location A. MOLDER AND CASTER
--- NOTE | ~2023-07-28 | CT_ITS ---
EXAMINATION: CT abdomen pelvis w con DATE: 07/28/2023 08:34 INDICATION: Abdominal pain, diarrhea TECHNIQUE: Computed tomography (CT) of the abdomen and pelvis was performed with 100 CC Omnipaque 350 intravenous contrast. Automated exposure control and iterative reconstruction technique were employe d. Exam dose: 390.29 mGy-cm total exam DLP. COMPARISON: 09/19/2022 CT abdomen pelvis FINDINGS: There is minimal discoid atelectasis or scarring at the lung bases. Normal heart size. No p ericardial or pleural effusion. The gallbladder is distended but no gallbladder wall thickening or pericholecystic fluid or fat stran ding is noted. The liver, bile ducts, spleen, pancreas, pancreatic duct, and adrenal glands and kidneys are unremark able. There is prominent atherosclerotic calcification but normal caliber of the abdominal aorta and iliac arteries and femoral arteries. No intraperitoneal or retroperitoneal or pelvic mass lesion or adenopa thy or ascites. The urinary bladder is distended, extending up to the level of the umbilicus. No urinary bladder wall thickening is noted. Normal appendix. There is a very prominent amount of fecal material in the rectum and colon, with increased distention of the rectum since 09/19/2022, measuring up to 8.9 cm AP and 9.1 cm transverse dimension, full of sto ol. The sigmoid colon is distended as well, focal of stool, redundant, extending into the right subhe patic area. There is mild thickening of the rectal and sigmoid colon vang. No pneumatosis. No unenha nced bowel is evident. Normal caliber of the small bowel. Included skeletal structures are unremarkable. IMPRESSION: Prominent fecal distention of the rectum and colon, particularly sigmoid colon, with thi ckening of the wall of the rectum and sigmoid colon. There is increased fecal distention of the rectu m and colon since 09/19/2022 Prominently distended urinary bladder Reviewed, dictated and finalized at Location A. Reviewed, dictated and finalized at location B. OCUS DEVELOPER IMPRESSION: Prominent fecal distention of the rectum and colon, particularly s igmoid colon, with thickening of the wall of the rectum and sigmoid colon. Ther e is increased fecal distention of the rectum and colon since 09/19/2022 Prominently distended urinary bladder
--- NOTE | ~2023-07-28 | XR_ITS ---
EXAM: XR foot RT min 3V DATE: 07/29/2023 15:09 HISTORY: another fall, LATERAL right foot pain . COMPARISON: 07/28/2023. FINDINGS: Decreased mineralization. No fracture or dislocation. No lytic or blastic lesion. Mild sca ttered degenerative changes. No erosion or periosteal change. Soft tissues within normal limits. IMPRESSION: No acute osseous finding in the right foot. Reviewed, dictated and finalized at location K. N SUPERVISOR
--- NOTE | 2023-07-28 07:03 | ED.WEAKNESS ---
HPI - Weakness General Chief complaint: Weakness Stated complaint: SICK CASE Time Seen by Provider: 07/28/23 06:50 History of Present Illness HPI Narrative: Patient is a 53 year old male with psychiatric history here from a assisted with diarrhea. Patient notes that he has been feeling sick for about 3 days. Notes multiple episodes of diarrhea including one upon arrival to the ED. He additionally notes cough, unsure if he has had a fever, chills, runny nose. He has had some associated abdominal pain, believes it is around his umbilicus and suprapubically. Denies chest pain. Endorses occasionally feeing short of breath but has not experienced any of this recently. Denies cardiac history. Unsure of sick contacts. He has been taking peptobismol, unsure if it has helped. Related Data Home Medications Medication Instructions Recorded Confirmed aspirin 81 mg capsule 81 mg PO DAILY 05/10/21 07/28/23 benztropine 1 mg tablet 1 mg PO BID 05/10/21 07/28/23 carbamazepine 400 mg 400 mg PO Q12H 05/10/21 07/28/23 tablet,extended release,12 hr (Tegretol XR) carvedilol 3.125 mg tablet (Coreg) 3.125 mg PO Q12H 05/10/21 07/28/23 docusate sodium 100 mg capsule 100 mg PO BID 05/10/21 07/28/23 (Colace) famotidine 40 mg tablet (Pepcid) 40 mg PO DAILY 05/10/21 07/28/23 loratadine 10 mg tablet 10 mg PO DAILY 05/10/21 07/28/23 lorazepam 1 mg tablet 1 mg PO BID PRN Anxiety 05/10/21 07/28/23 olanzapine 20 mg tablet (Zyprexa) 20 mg PO DAILY 05/10/21 07/28/23 pravastatin 80 mg tablet 80 mg PO DAILY 05/10/21 07/28/23 sertraline 100 mg tablet (Zoloft) 100 mg PO DAILY 05/10/21 07/28/23 sodium chloride 1 gram tablet 1,000 mg PO DAILY 05/10/21 07/28/23 Allergies Allergy/AdvReac Type Severity Reaction Status Date / Time No Known Allergies Allergy Verified 07/28/23 06:49 Review of Systems Review of Systems: All systems reviewed & are unremarkable except as noted in HPI and below PMFSH Past Medical History Medical History History of depression History of high cholesterol History of hypertension History of seizure Social History Social History Smoking status: Former smoker Living arrangements: assisted living Occupation/Education: other Additional occupation/education comments: Disabled Exam Narrative: GENERAL: Well-appearing, well-nourished, and in no acute distress. HEAD: Normocephalic, atraumatic. EYES: PERRLA and EOMI. ENT: Nares clear. Mucous membranes dry, dried light pink crusting on lips. NECK: Supple. CHEST: Clear to auscultation. No respiratory distress. HEART: Regular rate and rhythm. Normal peripheral pulses. ABDOMEN: Soft, suprapubic tenderness, nondistended. EXTREMITIES: Normal range of motion. Tenderness over the 3rd, 4th and 5th metatarsals with some overlying edema, no bruising or erythema. Strong DP pulse. Ankle non tender with Full ROM. SKIN: Warm, dry, no rash. NEURO: No focal deficits. Alert and oriented x3. Course Course Emergency Course: Chart review performed. Patient here for flu like symptoms. History of HTN, seizure, depression. Triage vitals show show tachycardia, hypotension. Patient seen and evaluated, in no acute distress. Dried mucous membranes, abdomen soft, mild tenderness suprapubically. Sepsis orders placed, will do CXR and CT abdomen pelvis. Viral swabs ordered. Will additionally do XR of R foot. Lab work reviewed. Leukocytosis at 17.9, BRENDAN present with a creatinine of 1.93, prior was 0.85. Lactic elevated at 4.4, receiving IVF. CRP elevated at 14.9. COVID, Influenza, RSV negative. C.diff negative. CT reviewed by myself, large stool burden with urinary retention. Awaiting formal read by radiology. Patient was able to urinate [address] was performed. Urine very dark, sample sent to lab. CK and salicylates added. CT shows fecal distention of rectum and colon with thicken
--- NOTE | 2023-07-28 07:05 | ECG_ITS ---
Measurements Intervals [place] Rate: 90 P: 5 WA: 134 QRS: 37 QRSD: 113 T: 34 QT: 363 QTc: 444 Interpretive Statements SINUS RHYTHM INTRAVENTRICULAR CONDUCTION DELAY DELAYED PRECORDIAL R/S TRANSITION NONSPECIFIC ST & T-WAVE ABNORMALITY- INF/LAT LEADS BORDERLINE ECG COMPARED TO ECG 09/19/2022 10:57:50 NO SIGNIFICANT CHANGES Electronically Signed On 07-28-2023 8:26:17 MACHINE PIE MAKER by Sergio Haskins D.O.
[2023-07-28 07:16] LABS: Basophils Absolute Auto 0.02 K/mm3 (0.00-0.10); Basophils Percent Auto 0.1 % (0.0-1.0); Immature Granulocyte Absolute 0.04 K/mm3 (0.00-0.00); Immature Granulocyte Percent A 0.2 % (0.0-0.0); Lymphocytes Absolute Auto 1.66 K/mm3 (1.10-4.50); Lymphocytes Percent Auto 9.3 % (18.0-42.0); Mean Corpuscular HGB Conc 32.6 g/dL (32.0-36.0); Mean Corpuscular Volume 88.8 fL (78.0-102.0); Mean Platelet Volume 12.5 fl (8.7-11.0); Monocytes Absolute Auto 1.98 K/mm3 (0.10-0.90); Monocytes Percent Auto 11.1 % (2.0-11.0); Neutrophils Absolute Auto 14.2 K/mm3 (1.7-7.2); Neutrophils Percent Auto 79.3 % (50.0-70.0); Platelet Count Result 286 K/mm3 (150-420); Red Blood Count 5.18 M/mm3 (4.70-6.10); Red Cell Distribution Width 14.1 % (11.6-14.4); White Blood Count 17.9 K/mm3 (4.8-10.8)
[2023-07-28 07:35] LABS: INR 1.3; Partial Thromboplastin Time 30.2 SEC (23.90-30.70); Prothrombin Time 14.3 Seconds (9.50-12.10)
[2023-07-28 07:53] LABS: Influenza A QL RT-PCR Negative (Negative); Influenza B QL RT-PCR Negative (Negative); RSV RNA, RT-PCR Negative (Negative); SARS-CoV-2 RNA PCR Negative (Negative)
--- NOTE | 2023-07-28 07:53 | PC.NURSE ---
REPORT FROM EDDIE SHERIFF. PT IS LYING ON STRETCHER IN EXAM ROOM WITH IVF INFUSING ORDERED WITHOUT DIFFICULTY. PT HAD A BM, PERICARE WAS PROVIDED. LIQUID, LOOSE STOOL NOTED WITH FOUL ODOR. PT HAS CRUSTED PEPTO BISMOL NOTED TO MOUTH. WILL CONTINUE TO MONITOR. WARM BLANKETS WERE PROVIDED.
[2023-07-28 08:05] LABS: Alanine Aminotransferase 16 U/L (16-63); Albumin Level 3.3 g/dL (3.4-5.0); Alkaline Phosphatase 79 U/L (46-116); Anion Gap 18 mmol/L (8-16); Aspartate Amino Transferase 16 U/L (15-37); Bilirubin,Total 0.4 mg/dL (0.00-1.00); Blood Urea Nitrogen 34 mg/dL (7-18); Calcium 8.1 mg/dL (8.5-10.1); Carbon Dioxide 20 mmol/L (21-32); Chloride 98 mmol/L (98-108); Estimated CRCL calculation 39 ml/min; Estimated Glomerular Filt Rate 37; Glucose 132 mg/dL (70-99); Osmolality Calculated 291 mOsm/kg (285-295); Potassium 3.8 mmol/L (3.5-5.1); Sodium 136 mmol/L (136-145); Total Protein 7.5 g/dL (6.4-8.2); Troponin I 6.5 ng/L (0.00-60.4)
[2023-07-28 08:06] LABS: Lipase 18 U/L (16-77)
[2023-07-28 08:06] LABS: CRP 14.9 mg/dL (0.0-0.9)
[2023-07-28 08:14] LABS: Lactic Acid Reflex 4.4 mmol/L (0.4-2.0)
[2023-07-28] MEDS: PIPERACILLIN/TAZ 4.5G/NS 100ML 4.5 GM/100 ML BAG IVPB (08:44)
--- NOTE | 2023-07-28 08:53 | PC.NURSE ---
PT VOIDED 700ML WITHOUT DIFFICULTY, DARK TEA COLORED URINE NOTED. IVF AND ABX ARE INFUSING WITHOUT DIFFICULTY. WILL CONTINUE TO MONITOR.
[2023-07-28 08:54] LABS: Appearance Urine Clear (Clear); Bilirubin Urine 3+ (Negative); Blood Urine Negative (Negative); Glucose Urine UA Trace (Negative); Ketones Urine Trace (Negative); Leukocyte Esterase Ur Trace LEU/UL (Negative); Nitrate Urine Positive (Negative); Protein Urine 1+ (Negative); Specific Grav Ur 1.025 (1.010-1.020); pH Urine 6.5 (5.0-8.0)
[2023-07-28 09:03] LABS: Magnesium 2.8 mg/dL (1.8-2.4)
[2023-07-28 09:08] LABS: Color Urine Dark Amber (Yellow)
[2023-07-28 09:09] LABS: Add Urine Microscopic? YES; Bacteria Urine Rare /hpf; RBC Urine 0-2 /hpf (0-2); Squamous Epithelial Cell Urine Rare /hpf (Few); WBC Urine 0-3 /hpf (0-3)
[2023-07-28 09:50] LABS: Creatine Kinase 78 U/L (39-308)
[2023-07-28 09:55] LABS: Salicylate 3.3 mg/dL (2.8-20.0)
[2023-07-28 10:10] LABS: Reflex Lactic Acid Yes or No Add Lactic
--- NOTE | 2023-07-28 10:10 | PC.NURSE ---
PT IS RESTING ON STRETCHER IN EXAM ROOM WITHOUT DISTRESS. IVF INFUSING ORDERED WITHOUT DIFFICULTY. PT DENIES ANY NEEDS OR COMPLAINTS. WILL CONTINUE TO MONITOR. PT IS AWAITING REPEAT LABS. VSS PER MONITOR.
[2023-07-28 10:37] LABS: Anion Gap 11 mmol/L (8-16); Blood Urea Nitrogen 33 mg/dL (7-18); Calcium 7.8 mg/dL (8.5-10.1); Carbon Dioxide 25 mmol/L (21-32); Chloride 101 mmol/L (98-108); Estimated CRCL calculation 50 ml/min; Estimated Glomerular Filt Rate 49; Glucose 119 mg/dL (70-99); Osmolality Calculated 292 mOsm/kg (285-295); Potassium 3.8 mmol/L (3.5-5.1); Sodium 137 mmol/L (136-145)
[2023-07-28 10:46] LABS: Lactic Acid 2.2 mmol/L (0.4-2.0)
--- NOTE | 2023-07-28 10:56 | PC.NURSE ---
MESSAGE LEFT WITH ANDREA BACON, PT'S CONTACT.
--- NOTE | 2023-07-28 11:45 | PC.NURSE ---
PT ADMITTED TO 226. [facility] PROVIDED ANOTHER SMALL DIARRHEA EPISODE WAS NOTED. LONGTERM CARE NOTIFIED.
[2023-07-28] MEDS: SODIUM CHLORIDE 0.9% IV 1,000 ML 100 ML IV CONT ×2 (12:15→22:11)
[2023-07-28] MEDS: BENZTROPINE MESYLATE 1 MG TABLET PO ×2 (14:15→21:14)
[2023-07-28] MEDS: PIPERACILLN/TAZ 3.375GM/NS50ML 3.375 GM/50 ML BAG IVPB ×2 (14:15→19:58)
--- NOTE | 2023-07-28 14:31 | PM.IMHP ---
H&P: HPI History of Present Illness Date/Time: 07/28/23 14:31 Chief Complaint: Abdominal pain and diarrhea, fall right foot pain Narrative: This is a 53-year-old male patient resident of a half-way setting who was brought to the emergency department after a fall with right foot pain. Patient also complaining of abdominal pain with diarrhea. He has a history of chronic constipation, intellectual delay, depression, hyperlipidemia hypertension and seizure disorder. Patient reports that his left side of his abdomen has been hurting for the last couple of days and he has been having several episodes of diarrhea. He does not recall the last time he had solid stool. Patient denies chest pain difficulty breathing. He states he has not been as hungry or drinking as much recently. Patient reports pain and swelling to his right foot after fall today. He denies any other injury. Workup in the emergency department was significant for elevated white blood cell count, elevated lactic acid, elevated creatinine with an BRENDAN. Review of Systems Review of Systems: All systems reviewed & are unremarkable except as noted in HPI and below PMFSH Past Medical History Medical History History of depression History of high cholesterol History of hypertension History of seizure Social History Social History Smoking status: Former smoker Living arrangements: assisted living Occupation/Education: other Additional occupation/education comments: Disabled Meds Home Medications and Allergies Home Medications Medication Instructions Recorded Confirmed Type aspirin 81 mg capsule 81 mg PO DAILY 05/10/21 07/28/23 History benztropine 1 mg tablet 1 mg PO BID 05/10/21 07/28/23 History carvedilol 3.125 mg tablet (Coreg) 3.125 mg PO QAM 05/10/21 07/28/23 History docusate sodium 100 mg capsule 100 mg PO BID 05/10/21 07/28/23 History (Colace) famotidine 40 mg tablet (Pepcid) 40 mg PO DAILY 05/10/21 07/28/23 History loratadine 10 mg tablet 10 mg PO DAILY 05/10/21 07/28/23 History lorazepam 1 mg tablet 1 mg PO BID PRN Anxiety 05/10/21 07/28/23 History pravastatin 80 mg tablet 80 mg PO DAILY 05/10/21 07/28/23 History sertraline 100 mg tablet (Zoloft) 100 mg PO DAILY 05/10/21 07/28/23 History sodium chloride 1 gram tablet 1,000 mg PO DAILY 05/10/21 07/28/23 History carbamazepine 200 mg tablet 400 mg HS 07/28/23 07/28/23 History Allergies Allergy/AdvReac Type Severity Reaction Status Date / Time No Known Allergies Allergy Verified 07/28/23 06:49 Vital Signs Vital Signs - 24 hr 07/28/23 06:48 07/28/23 07:32 07/28/23 07:51 Temperature 35.8 C L Pulse Rate 107 H 88 Respiratory Rate 18 Blood Pressure 90/72 L 91/74 L Pulse Oximetry 94 99 97 Oxygen Delivery Room Air Fraction of Inspired Oxygen 07/28/23 07:52 07/28/23 08:00 07/28/23 08:07 Temperature Pulse Rate 90 Respiratory Rate 18 Blood Pressure 102/75 Pulse Oximetry 97 98 99 Oxygen Delivery Room Air Fraction of Inspired Oxygen 07/28/23 08:43 07/28/23 08:46 07/28/23 09:00 Temperature Pulse Rate Respiratory Rate Blood Pressure 106/74 Pulse Oximetry 82 L 100 100 Oxygen Delivery Fraction of Inspired Oxygen 07/28/23 09:26 07/28/23 09:30 07/28/23 09:39 Temperature Pulse Rate Respiratory Rate Blood Pressure 106/75 Pulse Oximetry 100 99 100 Oxygen Delivery Fraction of Inspired Oxygen 07/28/23 10:49 07/28/23 14:00 Temperature 36.4 C L Pulse Rate 87 87 Respiratory Rate 14 14 Blood Pressure 124/84 Pulse Oximetry 98 97 Oxygen Delivery Room Air Room Air Fraction of Inspired Oxygen 98 Exam Narrative: GENERAL: Dehydrated-appearing, well-nourished, and in no acute distress. HEAD: Normocephalic, atraumatic. ENT:? Dry membranes. CHEST: Clear to auscultation.? No respiratory distres
--- NOTE | 2023-07-28 14:35 | PC.NURSE ---
Notified Jeremi SUTTON regarding the sepsis bullseye. No additional orders at this time.
--- NOTE | 2023-07-28 15:11 | PC.NURSE ---
SS enema given , 500ml water used. Pt had large diarrhea episode prior to enema. Red area noted toright hip. Pt educated regarding turning every 2 hours and sitting up. Buttocks are red . Right foot is swollen and brused from a fall prior to coming here.
[2023-07-28] MEDS: LACTULOSE 20 GM/30 ML UDC PO (17:00)
[2023-07-28] MEDS: BISACODYL 5 MG TABLET EC PO (17:12)
[2023-07-28] MEDS: DOCUSATE SODIUM 100 MG CAPSULE PO (17:12)
[2023-07-28] MEDS: carBAMazepine 200 MG TABLET 400 MG PO (21:11)
[2023-07-28] MEDS: carvediloL 3.125 MG TABLET PO (21:12)
[2023-07-29] VITALS: BP 106/74; PULSE 94; RESP 17; TEMP 37.3; O2SAT 97
[2023-07-29] MEDS: PIPERACILLN/TAZ 3.375GM/NS50ML 3.375 GM/50 ML BAG IVPB ×2 (01:31→08:46)
[2023-07-29 08:00] VITALS: BP 104/68; PULSE 93; RESP 14; TEMP 36.7; O2SAT 98
[2023-07-29] MEDS: ENOXAPARIN 40 MG/0.4 ML SYRINGE SUB-Q (08:50)
[2023-07-29] MEDS: SODIUM CHLORIDE 500 MG TABLET 1000 MG PO (08:51)
[2023-07-29] MEDS: DOCUSATE SODIUM 100 MG CAPSULE PO ×2 (08:51→17:30)
[2023-07-29] MEDS: LACTULOSE 20 GM/30 ML UDC PO (08:51)
[2023-07-29] MEDS: SERTRALINE HCL 50 MG TABLET 100 MG PO (08:51)
[2023-07-29] MEDS: LORATADINE 10 MG TABLET PO (08:52)
[2023-07-29] MEDS: FAMOTIDINE 20 MG TABLET 40 MG PO (08:52)
[2023-07-29] MEDS: PRAVASTATIN SODIUM 20 MG TABLET 80 MG PO (08:52)
[2023-07-29] MEDS: ASPIRIN 81 MG ENTERIC TABLET PO (08:53)
[2023-07-29] MEDS: BENZTROPINE MESYLATE 1 MG TABLET PO ×2 (08:53→21:31)
[2023-07-29 09:01] VITALS: PULSE 93
[2023-07-29] MEDS: carvediloL 3.125 MG TABLET PO ×2 (09:01→20:56)
--- NOTE | 2023-07-29 10:31 | PM.IMPN ---
Progress Note: A&P Assessment and Plan (1) Sepsis: Code(s): A41.9 - Sepsis, unspecified organism Status: Acute Assessment and Plan: Findings of urinary tract infection with elevated white blood cell count 17.9, lactic acid 4.4, heart rate 107. Lactic acid 2.2 after fluid bolus. 07/29: white blood cell decreased to 10.7, lactic acid 1.7, awaiting urine culture (2) BRENDAN (acute kidney injury): Code(s): N17.9 - Acute kidney failure, unspecified Status: Acute Assessment and Plan: Baseline creatinine 0.85 and GFR greater than 60, creatinine 1.93 on admit BUN of 34 estimated GFR 37. Repeat creatinine 1.49 BUN 33 with estimated GFR of 49. 07/29: renal function improved after IV fluids with BUN of 18 creatinine 0.76 estimated GFR greater than 60 estimated creatinine clearance 94 (3) Acute dehydration: Code(s): E86.0 - Dehydration Status: Acute Assessment and Plan: Poor oral intake, chronic constipation with diarrhea around constipated stool. Status post 2 L IV fluids in the emergency department and on 100 mL/hr normal saline maintenance fluids. 07/29: patient still not drinking enough fluids orally, decrease IV fluid rate to 50 mL an hour to supplement oral intake (4) Acute UTI: Code(s): N39.0 - Urinary tract infection, site not specified Status: Acute Assessment and Plan: Patient on Zosyn due to sepsis with abnormal urine findings. 07/29: will deescalate to Rocephin today (5) Chronic constipation: Code(s): K59.09 - Other constipation Status: Acute Assessment and Plan: Ordered soapsuds enema. 07/29: repeated enema today administered myself nearly 1 L soapsuds enema with mineral oil added (6) Diarrhea: Qualifiers: Diarrhea type: unspecified type Qualified Code(s): R19.7 - Diarrhea, unspecified Code(s): R19.7 - Diarrhea, unspecified Status: Acute Assessment and Plan: Diarrheal stools around constipated stool in distal colon and rectum (7) Ribs, multiple fractures: Code(s): S22.49XA - Multiple fractures of ribs, unspecified side, initial encounter for closed fracture Status: Acute Assessment and Plan: Left rib fractures Plan Decrease IV fluids to 50 mL/hr, encourage oral intake Encourage PT OT assessment which patient has declined once today Deescalate IV antibiotics to Rocephin pending urine culture Blood cultures also in process Diet: Heart Healthy, encourage PO fluids VTE Prophylaxis: Lovenox GI Prophylaxis: N/A Code Status: Full Code Disposition: Likely return to home after treatment Time Spent With Patient Time: Including time spent personally administering soapsuds and mineral oil enema Time with patient: Greater than 35 minutes Subjective Date/time seen: 07/29/23 13:00 Interval history: Large soap suds and mineral oil enema given by this provider to attempt to mobilize some stool better. Labs much improved. Patient refused OT evaluation states that he can walk on his own and doesn't need therapy though nursing staff states he is not steady just transferring to commode. Patient denies nausea/vomiting, reports all his stool has been liquid. Nursing noted some solid stool in last BM prior to enema today. Vital signs stable. Patient is eating and drinking without nausea/vomiting. He still is not drinking much fluid so we will continue IV fluids at decreased rate again overnight. Review of Systems Review of Systems: All systems reviewed & are unremarkable except as noted in HPI and below Exam Narrative: GENERAL: Dehydrated-appearing, well-nourished, and in no acute distress. HEAD: Normocephalic, atraumatic. ENT:? Dry membranes. CHEST: Clear to auscultation.? No respiratory distress. HEART: Regular rate and rhythm. ? Normal peripheral pulses. ABDOMEN: Soft, mildly distended, mildly tender to palpation on the left upper and left lower quadrants, no peritoneal signs EXTREM
--- NOTE | 2023-07-29 10:58 | PC.NURSE ---
MEDICAL SCIENTIFIC LIAISON would like to place brunner to decompress the bladder. Pt refuses brunner at this time.
[2023-07-29 11:00] LABS: Hemoglobin 10.5 g/dL (14.0-18.0); Mean Corpuscular HGB Conc 31.8 g/dL (32.0-36.0); Mean Corpuscular Hemoglobin 28.5 pg (27.0-31.0); Mean Corpuscular Volume 89.7 fL (78.0-102.0); Mean Platelet Volume 11.8 fl (8.7-11.0); Platelet Count Result 154 K/mm3 (150-420); Red Blood Count 3.68 M/mm3 (4.70-6.10); Red Cell Distribution Width 14.4 % (11.6-14.4); White Blood Count 10.7 K/mm3 (4.8-10.8)
[2023-07-29 11:11] LABS: Anion Gap 7 mmol/L (8-16); Blood Urea Nitrogen 18 mg/dL (7-18); Calcium 7.8 mg/dL (8.5-10.1); Carbon Dioxide 28 mmol/L (21-32); Chloride 105 mmol/L (98-108); Estimated CRCL calculation 94 ml/min; Estimated Glomerular Filt Rate > 60; Glucose 117 mg/dL (70-99); Osmolality Calculated 292 mOsm/kg (285-295); Potassium 3.7 mmol/L (3.5-5.1); Sodium 140 mmol/L (136-145)
[2023-07-29 11:19] LABS: Magnesium 2.1 mg/dL (1.8-2.4)
[2023-07-29 11:29] LABS: Lactic Acid Reflex 1.7 mmol/L (0.4-2.0)
[2023-07-29] MEDS: LIDOCAINE HCL 2% GEL UROJET 10 ML PKG MUCOUS MEM (13:00)
--- NOTE | 2023-07-29 14:20 | PC.NURSE ---
Pt given Mineral oil and soap suds enema at 1300 for stool blockage. Pt had large results of solid stool approximately 30 minutes after enema. RO
--- NOTE | 2023-07-29 14:22 | PC.NURSE ---
Bed alarm went off. Upon arriving to room pt was found on his knees on the floor. Pt stated he fell again. Pt able to get up without assistance and denies any injury. Bed alarm was on, call light in reach, side rails are up x3. Reminded patient that he needs to use the call light prior to getting out of bed.
[2023-07-29] MEDS: SODIUM CHLORIDE 0.9% IV 1,000 ML 50 ML IV CONT (15:15)
[2023-07-29 18:00] VITALS: BP 116/74; PULSE 90; RESP 18; TEMP 36.7; O2SAT 96
[2023-07-29] MEDS: carBAMazepine 200 MG TABLET 400 MG PO (20:53)
[2023-07-29 20:56] VITALS: PULSE 92
--- NOTE | 2023-07-29 23:39 | PC.NURSE ---
Patient in room 206. Pleasant and cooperative. Forgets to wait for assist. Bed alarm on, when pt sets off alarm he will immediately lay back in bed. Call light and belongings within reach. Instructed on safety.
[2023-07-30] VITALS: BP 113/69; PULSE 96; RESP 20; TEMP 37.3; O2SAT 95
--- NOTE | 2023-07-30 02:13 | PC.NURSE ---
Pt asleep and no signs of discomfort noted.
--- NOTE | 2023-07-30 03:05 | PC.NURSE ---
Pt pulled IV site out; New IV started to the left hand with a #20 gauge catheter. IV fluid infusing as ordered.
--- NOTE | 2023-07-30 04:45 | PC.NURSE ---
New bag of IV fluid infusing as ordered.
[2023-07-30 05:30] LABS: Basophils Absolute Auto 0.01 K/mm3 (0.00-0.10); Basophils Percent Auto 0.1 % (0.0-1.0); Eosinophils Absolute Auto 0.25 K/mm3 (0.02-0.50); Eosinophils Percent Auto 2.8 % (1.0-6.0); Hematocrit 30.6 % (40.0-54.0); Hemoglobin 9.8 g/dL (14.0-18.0); Immature Granulocyte Absolute 0.05 K/mm3 (0.00-0.00); Immature Granulocyte Percent A 0.6 % (0.0-0.0); Lymphocytes Absolute Auto 1.82 K/mm3 (1.10-4.50); Lymphocytes Percent Auto 20.1 % (18.0-42.0); Mean Corpuscular Hemoglobin 28.2 pg (27.0-31.0); Mean Corpuscular Volume 88.2 fL (78.0-102.0); Mean Platelet Volume 12.6 fl (8.7-11.0); Monocytes Absolute Auto 0.67 K/mm3 (0.10-0.90); Monocytes Percent Auto 7.4 % (2.0-11.0); Neutrophils Absolute Auto 6.2 K/mm3 (1.7-7.2); Platelet Count Result 148 K/mm3 (150-420); Red Blood Count 3.47 M/mm3 (4.70-6.10); Red Cell Distribution Width 14.1 % (11.6-14.4)
[2023-07-30 05:53] LABS: Alanine Aminotransferase 20 U/L (16-63); Albumin Level 1.9 g/dL (3.4-5.0); Alkaline Phosphatase 57 U/L (46-116); Anion Gap 7 mmol/L (8-16); Aspartate Amino Transferase 16 U/L (15-37); Bilirubin,Total 0.2 mg/dL (0.00-1.00); Blood Urea Nitrogen 9 mg/dL (7-18); Calcium 7.1 mg/dL (8.5-10.1); Carbon Dioxide 27 mmol/L (21-32); Chloride 102 mmol/L (98-108); Estimated CRCL calculation 135 ml/min; Estimated Glomerular Filt Rate > 60; Glucose 98 mg/dL (70-99); Magnesium 1.6 mg/dL (1.8-2.4); Osmolality Calculated 280 mOsm/kg (285-295); Potassium 2.9 mmol/L (3.5-5.1); Sodium 136 mmol/L (136-145); Total Protein 5.2 g/dL (6.4-8.2)
--- NOTE | 2023-07-30 07:32 | WPDPN ---
Progress Note: A&P Assessment and Plan (1) Sepsis: Code(s): A41.9 - Sepsis, unspecified organism Status: Acute Assessment and Plan: Findings of urinary tract infection with elevated white blood cell count 17.9, lactic acid 4.4, heart rate 107. Lactic acid 2.2 after fluid bolus. 07/29: white blood cell decreased to 10.7, lactic acid 1.7, awaiting urine culture 07/30 WBC 9.0 urine culture show no growth (2) BRENDAN (acute kidney injury): Code(s): N17.9 - Acute kidney failure, unspecified Status: Acute Assessment and Plan: Baseline creatinine 0.85 and GFR greater than 60, creatinine 1.93 on admit BUN of 34 estimated GFR 37. Repeat creatinine 1.49 BUN 33 with estimated GFR of 49. 07/29: renal function improved after IV fluids with BUN of 18 creatinine 0.76 estimated GFR greater than 60 estimated creatinine clearance 94 (3) Acute dehydration: Code(s): E86.0 - Dehydration Status: Acute Assessment and Plan: Poor oral intake, chronic constipation with diarrhea around constipated stool. Status post 2 L IV fluids in the emergency department and on 100 mL/hr normal saline maintenance fluids. 07/29: patient still not drinking enough fluids orally, decrease IV fluid rate to 50 mL an hour to supplement oral intake 07/30 we will continue plan (4) Acute UTI: Code(s): N39.0 - Urinary tract infection, site not specified Status: Acute Assessment and Plan: Patient on Zosyn due to sepsis with abnormal urine findings. 07/29: will deescalate to Rocephin today Patient will recieve an additional dose of Rocephin today (5) Chronic constipation: Code(s): K59.09 - Other constipation Status: Acute Assessment and Plan: Ordered soapsuds enema. 07/29: repeated enema today administered myself nearly 1 L soapsuds enema with mineral oil added (6) Diarrhea: Qualifiers: Diarrhea type: unspecified type Qualified Code(s): R19.7 - Diarrhea, unspecified Code(s): R19.7 - Diarrhea, unspecified Status: Acute Assessment and Plan: Diarrheal stools around constipated stool in distal colon and rectum (7) Ribs, multiple fractures: Code(s): S22.49XA - Multiple fractures of ribs, unspecified side, initial encounter for closed fracture Status: Acute Assessment and Plan: Left rib fractures Plan Decrease IV fluids to 50 mL/hr, encourage oral intake Encourage PT OT assessment which patient has declined once today Deescalate IV antibiotics to Rocephin pending urine culture Cultures show no growth Diet: Heart Healthy, encourage PO fluids VTE Prophylaxis: Lovenox GI Prophylaxis: N/A Code Status: Full Code Disposition: Likely return to home after treatment Subjective Date/time seen: 07/30/23 07:32 Interval history: Patient had a large Bowel movement last night today with evaluation of lab of potassium is low. Patient is slightly rambles about whatever is asked of him. He has attempted several times while I was in the room to get out of the bed and needed to be redirected. Patient states that he has been having realistic dreams that he seems to wake up and thinks that they are real when he wakes up. Exam Narrative: GENERAL: Dehydrated-appearing, well-nourished, and in no acute distress. HEAD: Normocephalic, atraumatic. ENT:? Dry membranes. CHEST: Clear to auscultation.? No respiratory distress. HEART: Regular rate and rhythm. ? Normal peripheral pulses. ABDOMEN: Soft, mildly distended, mildly tender to palpation on the left upper and left lower quadrants, no peritoneal signs EXTREMITIES: Normal range of motion. Right foot bruising swelling tenderness to palpation with full range of motion SKIN: Warm dry normal color NEURO: Alert and oriented with some confusion to baseline mental status PSYCH: Normal mood and affect, history of depression but not currently dysthymic Objective Data Vital Signs Vital Signs: Rebekah
[2023-07-30 08:00] VITALS: BP 120/86; PULSE 80; RESP 14; TEMP 36.1; O2SAT 98
[2023-07-30] MEDS: KCL 20 MEQ/SW 100 ML 100 ML 50 MEQ IVPB (08:17)
[2023-07-30] MEDS: ENOXAPARIN 40 MG/0.4 ML SYRINGE SUB-Q (08:18)
[2023-07-30] MEDS: LACTULOSE 20 GM/30 ML UDC PO (08:18)
[2023-07-30 08:19] VITALS: PULSE 88
[2023-07-30] MEDS: carvediloL 3.125 MG TABLET PO ×2 (08:19→20:50)
[2023-07-30] MEDS: LORATADINE 10 MG TABLET PO (08:20)
[2023-07-30] MEDS: DOCUSATE SODIUM 100 MG CAPSULE PO ×2 (08:20→16:42)
[2023-07-30] MEDS: ASPIRIN 81 MG ENTERIC TABLET PO (08:20)
[2023-07-30] MEDS: FAMOTIDINE 20 MG TABLET 40 MG PO (08:21)
[2023-07-30] MEDS: SODIUM CHLORIDE 500 MG TABLET 1000 MG PO (08:21)
[2023-07-30] MEDS: SERTRALINE HCL 50 MG TABLET 100 MG PO (09:00)
[2023-07-30] MEDS: PRAVASTATIN SODIUM 20 MG TABLET 80 MG PO (10:07)
[2023-07-30] MEDS: BENZTROPINE MESYLATE 1 MG TABLET PO ×2 (10:10→20:49)
[2023-07-30 15:51] VITALS: BP 147/84; PULSE 85; RESP 16; TEMP 36.3; O2SAT 96
[2023-07-30] MEDS: carBAMazepine 200 MG TABLET 400 MG PO (20:48)
[2023-07-30 20:50] VITALS: PULSE 88
[2023-07-31] VITALS: BP 119/81; PULSE 84; RESP 17; TEMP 37; O2SAT 96
[2023-07-31] MEDS: SODIUM CHLORIDE 0.9% IV 1,000 ML 50 ML IV CONT (01:54)
[2023-07-31 05:20] LABS: Basophils Absolute Auto 0.02 K/mm3 (0.00-0.10); Basophils Percent Auto 0.4 % (0.0-1.0); Eosinophils Absolute Auto 0.23 K/mm3 (0.02-0.50); Eosinophils Percent Auto 4.2 % (1.0-6.0); Hemoglobin 9.6 g/dL (14.0-18.0); Immature Granulocyte Absolute 0.03 K/mm3 (0.00-0.00); Immature Granulocyte Percent A 0.6 % (0.0-0.0); Lymphocytes Absolute Auto 1.58 K/mm3 (1.10-4.50); Mean Corpuscular Hemoglobin 28.7 pg (27.0-31.0); Mean Corpuscular Volume 89.6 fL (78.0-102.0); Mean Platelet Volume 12.6 fl (8.7-11.0); Monocytes Absolute Auto 0.42 K/mm3 (0.10-0.90); Monocytes Percent Auto 7.7 % (2.0-11.0); Neutrophils Absolute Auto 3.2 K/mm3 (1.7-7.2); Neutrophils Percent Auto 58.1 % (50.0-70.0); Platelet Count Result 144 K/mm3 (150-420); Red Blood Count 3.35 M/mm3 (4.70-6.10); Red Cell Distribution Width 14.2 % (11.6-14.4); White Blood Count 5.4 K/mm3 (4.8-10.8)
[2023-07-31 05:40] LABS: Alanine Aminotransferase 35 U/L (16-63); Albumin Level 1.8 g/dL (3.4-5.0); Alkaline Phosphatase 52 U/L (46-116); Anion Gap 6 mmol/L (8-16); Aspartate Amino Transferase 26 U/L (15-37); Bilirubin,Total 0.2 mg/dL (0.00-1.00); Blood Urea Nitrogen 8 mg/dL (7-18); Carbon Dioxide 29 mmol/L (21-32); Chloride 105 mmol/L (98-108); Estimated CRCL calculation 140 ml/min; Estimated Glomerular Filt Rate > 60; Glucose 101 mg/dL (70-99); Magnesium 1.6 mg/dL (1.8-2.4); Osmolality Calculated 288 mOsm/kg (285-295); Potassium 3.1 mmol/L (3.5-5.1); Sodium 140 mmol/L (136-145)
[2023-07-31 08:00] VITALS: BP 132/52; PULSE 84; RESP 18; TEMP 36.9; O2SAT 96
[2023-07-31] MEDS: LACTULOSE 20 GM/30 ML UDC PO (09:21)
[2023-07-31] MEDS: ENOXAPARIN 40 MG/0.4 ML SYRINGE SUB-Q (09:22)
[2023-07-31] MEDS: FAMOTIDINE 20 MG TABLET 40 MG PO (09:22)
[2023-07-31] MEDS: SODIUM CHLORIDE 500 MG TABLET 1000 MG PO (09:22)
[2023-07-31] MEDS: PRAVASTATIN SODIUM 20 MG TABLET 80 MG PO (09:23)
[2023-07-31] MEDS: DOCUSATE SODIUM 100 MG CAPSULE PO ×2 (09:23→17:32)
[2023-07-31] MEDS: BENZTROPINE MESYLATE 1 MG TABLET PO ×2 (09:23→22:12)
[2023-07-31] MEDS: SERTRALINE HCL 50 MG TABLET 100 MG PO (09:23)
[2023-07-31 09:24] VITALS: PULSE 86
[2023-07-31] MEDS: LORATADINE 10 MG TABLET PO (09:24)
[2023-07-31] MEDS: ASPIRIN 81 MG ENTERIC TABLET PO (09:24)
[2023-07-31] MEDS: carvediloL 3.125 MG TABLET PO ×2 (09:24→20:15)
[2023-07-31] MEDS: POTASSIUM CHLORIDE 20 MEQ ER TABLET 40 MEQ PO (09:27)
[2023-07-31] MEDS: MAGNESIUM SULF 2 GM/WATER 50ML 2 GM/50 ML BAG IVPB (09:27)
--- NOTE | 2023-07-31 11:12 | PM.IMPN ---
Progress Note: A&P Assessment and Plan (1) Sepsis: Code(s): A41.9 - Sepsis, unspecified organism Status: Acute Assessment and Plan: Findings of urinary tract infection with elevated white blood cell count 17.9, lactic acid 4.4, heart rate 107. Lactic acid 2.2 after fluid bolus. 07/29: white blood cell decreased to 10.7, lactic acid 1.7, awaiting urine culture 07/30 WBC 9.0 urine culture show no growth 07/31:urine culture showing no growth, stool culture negative for C diff, white blood cell count 5.4 today (2) Acute dehydration: Code(s): E86.0 - Dehydration Status: Acute Assessment and Plan: Poor oral intake, chronic constipation with diarrhea around constipated stool. Status post 2 L IV fluids in the emergency department and on 100 mL/hr normal saline maintenance fluids. 07/29: patient still not drinking enough fluids orally, decrease IV fluid rate to 50 mL an hour to supplement oral intake 07/30 we will continue plan 07/31: resolved, DC IV fluids today (3) Acute UTI: Code(s): N39.0 - Urinary tract infection, site not specified Status: Acute Assessment and Plan: Patient on Zosyn due to sepsis with abnormal urine findings. 07/29: will deescalate to Rocephin today Patient will recieve an additional dose of Rocephin today 07/31: urine culture negative, Rocephin was DC'd (4) Chronic constipation: Code(s): K59.09 - Other constipation Status: Acute Assessment and Plan: Ordered soapsuds enema. 07/29: repeated enema today administered myself nearly 1 L soapsuds enema with mineral oil added 07/31: KUB today showing stool burden and ileus. Patient needs to work with therapy and nursing. He needs to get up for all 3 meals, ambulating the halls, and continue with bowel regimen. (5) Diarrhea: Qualifiers: Diarrhea type: unspecified type Qualified Code(s): R19.7 - Diarrhea, unspecified Code(s): R19.7 - Diarrhea, unspecified Status: Acute Assessment and Plan: 07/31: No bowel movements today last bowel movement was yesterday and was reported as normal not diarrhea. Patient currently has ileus on KUB today see above care plan. C diff negative. (6) Ribs, multiple fractures: Code(s): S22.49XA - Multiple fractures of ribs, unspecified side, initial encounter for closed fracture Status: Acute Assessment and Plan: of note Time Spent With Patient Time with patient: Greater than 35 minutes Subjective Date/time seen: 07/31/23 11:12 Interval history: This is a 53 year old male who presented to the hospital on 07/28/23 with complaints of abdominal pain, diarrhea, and fall. Work up in the hospital included abdomen pelvis CT which showed prominent fecal distension of the rectum and colon mild articularly sigmoid colon with thickening of the wall of the rectum and sigmoid colon. He had a chest x-ray which showed a suspected fracture at the lateral right 4th rib. Right foot x-ray X2 were negative for any dislocation or fracture. Chest CT showed healing subacute fractures of the left 3rd through 5th ribs. labs were significant for an elevated lactate, elevated white blood cell count, elevated creatinine with acute kidney injury. He was given a few soap suds enemas and had a few good bowel movements. Last night nursing reports diarrhea stools. On examination today patient abdomen is distended, soft, very hypoactive bowel sounds, patient does not report passing any gas. he denies any fever, chills, nausea, vomiting, diarrhea, abdominal pain, shortness a breath, chest pain. KUB was repeated today and shown Large volume of stool in the colon with distention of the colon, consistent with adynamic ileus. Plan for today is to increase his activity level. He needs to be up in the chair for all meals, ambulating in the halls, working with therapy. We will continue bowel regimen today. Plan for swing bed in the next day or so. Review of Systems Re
[2023-07-31] MEDS: polyethylene glycoL 3350 17 GM POWD.PACK PO (12:59)
[2023-07-31 16:00] VITALS: BP 126/74; PULSE 84; RESP 18; TEMP 36.9; O2SAT 96
[2023-07-31 20:15] VITALS: PULSE 84
[2023-07-31] MEDS: carBAMazepine 200 MG TABLET 400 MG PO (20:15)
[2023-08-01] VITALS: BP 137/93; PULSE 85; RESP 16; TEMP 37.3; O2SAT 96
[2023-08-01 05:47] LABS: Basophils Absolute Auto 0.02 K/mm3 (0.00-0.10); Basophils Percent Auto 0.4 % (0.0-1.0); Eosinophils Absolute Auto 0.25 K/mm3 (0.02-0.50); Eosinophils Percent Auto 4.7 % (1.0-6.0); Hematocrit 30.7 % (40.0-54.0); Hemoglobin 9.8 g/dL (14.0-18.0); Immature Granulocyte Absolute 0.05 K/mm3 (0.00-0.00); Immature Granulocyte Percent A 0.9 % (0.0-0.0); Lymphocytes Absolute Auto 1.69 K/mm3 (1.10-4.50); Lymphocytes Percent Auto 31.9 % (18.0-42.0); Mean Corpuscular HGB Conc 31.9 g/dL (32.0-36.0); Mean Corpuscular Hemoglobin 28.2 pg (27.0-31.0); Mean Corpuscular Volume 88.5 fL (78.0-102.0); Mean Platelet Volume 12.1 fl (8.7-11.0); Monocytes Absolute Auto 0.56 K/mm3 (0.10-0.90); Monocytes Percent Auto 10.6 % (2.0-11.0); Neutrophils Absolute Auto 2.7 K/mm3 (1.7-7.2); Neutrophils Percent Auto 51.5 % (50.0-70.0); Platelet Count Result 179 K/mm3 (150-420); Red Blood Count 3.47 M/mm3 (4.70-6.10); Red Cell Distribution Width 14.2 % (11.6-14.4); White Blood Count 5.3 K/mm3 (4.8-10.8)
[2023-08-01 06:08] LABS: Alanine Aminotransferase 49 U/L (16-63); Albumin Level 2.2 g/dL (3.4-5.0); Alkaline Phosphatase 58 U/L (46-116); Anion Gap 7 mmol/L (8-16); Aspartate Amino Transferase 32 U/L (15-37); Bilirubin,Total 0.3 mg/dL (0.00-1.00); Blood Urea Nitrogen 7 mg/dL (7-18); Calcium 7.5 mg/dL (8.5-10.1); Carbon Dioxide 28 mmol/L (21-32); Chloride 101 mmol/L (98-108); Estimated CRCL calculation 143 ml/min; Estimated Glomerular Filt Rate > 60; Glucose 99 mg/dL (70-99); Osmolality Calculated 280 mOsm/kg (285-295); Potassium 3.6 mmol/L (3.5-5.1); Sodium 136 mmol/L (136-145); Total Protein 5.7 g/dL (6.4-8.2)
[2023-08-01 08:00] VITALS: BP 112/74; PULSE 74; RESP 18; TEMP 36.6; O2SAT 98
[2023-08-01] MEDS: polyethylene glycoL 3350 17 GM POWD.PACK PO (08:49)
[2023-08-01] MEDS: DOCUSATE SODIUM 100 MG CAPSULE PO ×2 (08:49→17:30)
[2023-08-01] MEDS: ENOXAPARIN 40 MG/0.4 ML SYRINGE SUB-Q (08:49)
[2023-08-01] MEDS: LACTULOSE 20 GM/30 ML UDC PO (08:49)
[2023-08-01] MEDS: ASPIRIN 81 MG ENTERIC TABLET PO (08:50)
[2023-08-01] MEDS: SODIUM CHLORIDE 500 MG TABLET 1000 MG PO (08:50)
[2023-08-01] MEDS: SERTRALINE HCL 50 MG TABLET 100 MG PO (08:50)
[2023-08-01] MEDS: BENZTROPINE MESYLATE 1 MG TABLET PO ×2 (08:50→21:22)
[2023-08-01] MEDS: PRAVASTATIN SODIUM 20 MG TABLET 80 MG PO (08:50)
[2023-08-01 08:51] VITALS: PULSE 82
[2023-08-01] MEDS: LORATADINE 10 MG TABLET PO (08:51)
[2023-08-01] MEDS: carvediloL 3.125 MG TABLET PO ×2 (08:51→21:18)
[2023-08-01] MEDS: FAMOTIDINE 20 MG TABLET 40 MG PO (08:51)
--- NOTE | 2023-08-01 09:09 | PM.IMPN ---
Progress Note: A&P Assessment and Plan (1) Ribs, multiple fractures: Code(s): S22.49XA - Multiple fractures of ribs, unspecified side, initial encounter for closed fracture Status: Acute (2) Sepsis: Code(s): A41.9 - Sepsis, unspecified organism Status: Resolved (3) Diarrhea: Qualifiers: Diarrhea type: unspecified type Qualified Code(s): R19.7 - Diarrhea, unspecified Code(s): R19.7 - Diarrhea, unspecified Status: Resolved (4) BRENDAN (acute kidney injury): Code(s): N17.9 - Acute kidney failure, unspecified Status: Acute (5) Chronic constipation: Code(s): K59.09 - Other constipation Status: Acute Subjective Date/time seen: 08/01/23 09:09 Interval history: Patient stomach continue to be distended and I have order mag for patient patient continue to eat and drink and denies any pain but has not had a bowel movement we may be getting to a point where he will need to be transferred we will continue to monitor Exam Narrative: see previous note Objective Data Meds/Results Radiology Results: ITS Impressions Chest X-Ray 07/28/23 08:46 Impression: Clear lungs. Suspected fracture at the lateral right fourth rib. Chest CT 07/28/23 09:36 IMPRESSION: 1. Healing subacute fractures of left third-fifth ribs. No acute rib fracture. Foot X-Ray 07/29/23 15:11 IMPRESSION: No acute osseous finding in the right foot. Abdomen X-Ray 07/31/23 10:41 IMPRESSION: 1. Large volume of stool in the colon with distention of the colon, consistent with adynamic ileus. Abdomen/Pelvis CT 08/03/23 09:44 IMPRESSION: 1. Persistent fecal impaction of the rectum with slight improvement. 2. Persistent colonic distention with decrease in volume of colonic stool. 3. Short segment of wall thickening of the sigmoid colon, decreased in length since the comparison examination, possible mild colitis. Recommend correlation with colonoscopy history.
[2023-08-01] MEDS: MAGNESIUM CITRATE 300 ML BTL PO (13:46)
[2023-08-01 16:00] VITALS: BP 128/72; PULSE 78; RESP 18; TEMP 36.6; O2SAT 96
--- NOTE | 2023-08-01 19:17 | PC.NURSE ---
1700 2nd half of mag citrate given. tolerated well. track laying machine operator called to check on him. told of no bm and 2nd half of bottle given. denies any pain in abd. denies nausea.
[2023-08-01 21:18] VITALS: PULSE 89
[2023-08-01] MEDS: carBAMazepine 200 MG TABLET 400 MG PO (21:18)
[2023-08-02] VITALS: BP 125/83; PULSE 92; RESP 14; TEMP 36.9; O2SAT 92
[2023-08-02 05:29] LABS: Basophils Absolute Auto 0.01 K/mm3 (0.00-0.10); Basophils Percent Auto 0.2 % (0.0-1.0); Eosinophils Absolute Auto 0.17 K/mm3 (0.02-0.50); Hematocrit 30.3 % (40.0-54.0); Hemoglobin 9.6 g/dL (14.0-18.0); Immature Granulocyte Absolute 0.05 K/mm3 (0.00-0.00); Immature Granulocyte Percent A 0.9 % (0.0-0.0); Lymphocytes Absolute Auto 1.87 K/mm3 (1.10-4.50); Lymphocytes Percent Auto 32.5 % (18.0-42.0); Mean Corpuscular HGB Conc 31.7 g/dL (32.0-36.0); Mean Corpuscular Hemoglobin 28.2 pg (27.0-31.0); Mean Corpuscular Volume 88.9 fL (78.0-102.0); Monocytes Percent Auto 10.4 % (2.0-11.0); Neutrophils Absolute Auto 3.1 K/mm3 (1.7-7.2); Platelet Count Result 173 K/mm3 (150-420); Red Blood Count 3.41 M/mm3 (4.70-6.10); Red Cell Distribution Width 14.2 % (11.6-14.4); White Blood Count 5.8 K/mm3 (4.8-10.8)
[2023-08-02 05:51] LABS: Alanine Aminotransferase 58 U/L (16-63); Albumin Level 2.4 g/dL (3.4-5.0); Alkaline Phosphatase 64 U/L (46-116); Anion Gap 5 mmol/L (8-16); Aspartate Amino Transferase 36 U/L (15-37); Bilirubin,Total 0.2 mg/dL (0.00-1.00); Blood Urea Nitrogen 11 mg/dL (7-18); Calcium 7.5 mg/dL (8.5-10.1); Carbon Dioxide 29 mmol/L (21-32); Chloride 101 mmol/L (98-108); Estimated CRCL calculation 133 ml/min; Estimated Glomerular Filt Rate > 60; Glucose 98 mg/dL (70-99); Magnesium 2.2 mg/dL (1.8-2.4); Osmolality Calculated 279 mOsm/kg (285-295); Sodium 135 mmol/L (136-145); Total Protein 5.7 g/dL (6.4-8.2)
[2023-08-02 08:00] VITALS: BP 110/80; PULSE 90; RESP 16; TEMP 36.1; O2SAT 97
[2023-08-02] MEDS: ENOXAPARIN 40 MG/0.4 ML SYRINGE SUB-Q (09:24)
[2023-08-02] MEDS: LACTULOSE 20 GM/30 ML UDC PO ×2 (09:24→18:01)
[2023-08-02] MEDS: polyethylene glycoL 3350 17 GM POWD.PACK PO ×2 (09:24→18:00)
[2023-08-02] MEDS: DOCUSATE SODIUM 100 MG CAPSULE PO ×2 (09:25→18:01)
[2023-08-02] MEDS: SODIUM CHLORIDE 500 MG TABLET 1000 MG PO (09:25)
[2023-08-02] MEDS: PRAVASTATIN SODIUM 20 MG TABLET 80 MG PO (09:26)
[2023-08-02] MEDS: LORATADINE 10 MG TABLET PO (09:26)
[2023-08-02] MEDS: FAMOTIDINE 20 MG TABLET 40 MG PO (09:26)
[2023-08-02] MEDS: SERTRALINE HCL 50 MG TABLET 100 MG PO (09:26)
[2023-08-02] MEDS: ASPIRIN 81 MG ENTERIC TABLET PO (09:26)
[2023-08-02 09:27] VITALS: PULSE 85
[2023-08-02] MEDS: carvediloL 3.125 MG TABLET PO ×2 (09:27→21:21)
[2023-08-02] MEDS: BENZTROPINE MESYLATE 1 MG TABLET PO ×2 (09:27→21:20)
--- NOTE | 2023-08-02 09:28 | PC.NURSE ---
Juany Shaikh called and inquired about patient status, persons name not on patients chart as an emergency contact. This nurse verified with patient that it was okay to give Juany information, patient okayed.
--- NOTE | 2023-08-02 12:30 | PM.IMPN ---
Progress Note: A&P Assessment and Plan (1) Chronic constipation: Code(s): K59.09 - Other constipation Status: Acute Assessment and Plan: Ordered soapsuds enema. 07/29: repeated enema today administered myself nearly 1 L soapsuds enema with mineral oil added 07/31: KUB today showing stool burden and ileus. Patient needs to work with therapy and nursing. He needs to get up for all 3 meals, ambulating the halls, and continue with bowel regimen. 08/02: abdominal distension appears to be worsening since the last time I saw the patient but he remains pain-free and has no nausea or vomiting. Increase oral medications for constipation and patient will likely require additional enemas versus transfer if he does pass bowel movement in the next day or 2 (2) Diarrhea: Qualifiers: Diarrhea type: unspecified type Qualified Code(s): R19.7 - Diarrhea, unspecified Code(s): R19.7 - Diarrhea, unspecified Status: Resolved Assessment and Plan: 07/31: No bowel movements today last bowel movement was yesterday and was reported as normal not diarrhea. Patient currently has ileus on KUB today see above care plan. C diff negative. (3) Ribs, multiple fractures: Code(s): S22.49XA - Multiple fractures of ribs, unspecified side, initial encounter for closed fracture Status: Acute Assessment and Plan: of note (4) Sepsis: Code(s): A41.9 - Sepsis, unspecified organism Status: Resolved Assessment and Plan: Findings of urinary tract infection with elevated white blood cell count 17.9, lactic acid 4.4, heart rate 107. Lactic acid 2.2 after fluid bolus. 07/29: white blood cell decreased to 10.7, lactic acid 1.7, awaiting urine culture 07/30 WBC 9.0 urine culture show no growth 07/31:urine culture showing no growth, stool culture negative for C diff, white blood cell count 5.4 today 08/02: resolved (5) Acute dehydration: Code(s): E86.0 - Dehydration Status: Resolved Assessment and Plan: Poor oral intake, chronic constipation with diarrhea around constipated stool. Status post 2 L IV fluids in the emergency department and on 100 mL/hr normal saline maintenance fluids. 07/29: patient still not drinking enough fluids orally, decrease IV fluid rate to 50 mL an hour to supplement oral intake 07/30 we will continue plan 07/31: resolved, DC IV fluids today (6) Acute UTI: Code(s): N39.0 - Urinary tract infection, site not specified Status: Resolved Assessment and Plan: Patient on Zosyn due to sepsis with abnormal urine findings. 07/29: will deescalate to Rocephin today Patient will recieve an additional dose of Rocephin today 07/31: urine culture negative, Rocephin was DC'd 08/02: resolved Time Spent With Patient Time with patient: 25 - 35 minutes Subjective Date/time seen: 08/02/23 12:30 Interval history: Patient continues to have distended abdomen. He reports his last bowel movement was 2 days ago. He denies any abdominal pain or nausea/ vomiting. Increased lactulose dose added Senokot and increased MiraLax. Prior KUB indicates possible adynamic ileus. Patient may require subsequent enemas but if he does not pass bowel in the next air to he will likely require transfer to another facility. Review of Systems Review of Systems: All systems reviewed & are unremarkable except as noted in HPI and below Exam Narrative: General: In no acute distress, well nourished Head: atraumatic, no encephalopathy Eyes: EOMI, PERRLA, sclera clear ENT: moist mucous membranes, nasal passages clear Neck: supple, no JVD, no adenopathy, trachea midline Cardiac: Normal S1 and S2. No murmur, gallops or friction rubs, peripheral pulses intact. Respiratory: Right upper lobe inspiratory wheezing otherwise clear lung sounds, no use of accessory muscles, no signs of respiratory distress, he is on room air. Gastrointestinal: soft, distended non-tender, very hypoactive bow
[2023-08-02 16:40] VITALS: BP 116/82; PULSE 89; RESP 16; TEMP 36.4; O2SAT 96
[2023-08-02 21:21] VITALS: PULSE 90
[2023-08-02] MEDS: carBAMazepine 200 MG TABLET 400 MG PO (21:21)
[2023-08-02] MEDS: SENNOSIDES 8.6 MG TABLET PO (21:21)
[2023-08-02 23:08] VITALS: BP 139/88; PULSE 89; RESP 17; TEMP 36.8; O2SAT 94
[2023-08-03 05:38] LABS: Basophils Absolute Auto 0.01 K/mm3 (0.00-0.10); Basophils Percent Auto 0.1 % (0.0-1.0); Eosinophils Absolute Auto 0.23 K/mm3 (0.02-0.50); Hematocrit 32.9 % (40.0-54.0); Hemoglobin 10.5 g/dL (14.0-18.0); Immature Granulocyte Absolute 0.08 K/mm3 (0.00-0.00); Lymphocytes Absolute Auto 1.43 K/mm3 (1.10-4.50); Lymphocytes Percent Auto 18.4 % (18.0-42.0); Mean Corpuscular HGB Conc 31.9 g/dL (32.0-36.0); Mean Corpuscular Hemoglobin 28.5 pg (27.0-31.0); Mean Corpuscular Volume 89.4 fL (78.0-102.0); Mean Platelet Volume 11.6 fl (8.7-11.0); Monocytes Absolute Auto 0.76 K/mm3 (0.10-0.90); Monocytes Percent Auto 9.8 % (2.0-11.0); Neutrophils Absolute Auto 5.3 K/mm3 (1.7-7.2); Neutrophils Percent Auto 67.7 % (50.0-70.0); Platelet Count Result 240 K/mm3 (150-420); Red Blood Count 3.68 M/mm3 (4.70-6.10); Red Cell Distribution Width 14.2 % (11.6-14.4); White Blood Count 7.8 K/mm3 (4.8-10.8)
[2023-08-03 06:02] LABS: Alanine Aminotransferase 64 U/L (16-63); Albumin Level 2.6 g/dL (3.4-5.0); Alkaline Phosphatase 74 U/L (46-116); Anion Gap 8 mmol/L (8-16); Aspartate Amino Transferase 37 U/L (15-37); Bilirubin,Total 0.3 mg/dL (0.00-1.00); Blood Urea Nitrogen 13 mg/dL (7-18); Calcium 7.9 mg/dL (8.5-10.1); Carbon Dioxide 29 mmol/L (21-32); Chloride 96 mmol/L (98-108); Estimated CRCL calculation 121 ml/min; Estimated Glomerular Filt Rate > 60; Glucose 109 mg/dL (70-99); Osmolality Calculated 277 mOsm/kg (285-295); Potassium 4.1 mmol/L (3.5-5.1); Sodium 133 mmol/L (136-145); Total Protein 6.4 g/dL (6.4-8.2)
[2023-08-03 08:00] VITALS: BP 124/88; PULSE 80; RESP 14; TEMP 36.4; O2SAT 95
--- NOTE | 2023-08-03 11:12 | PM.IMPN ---
Progress Note: A&P Assessment and Plan (1) Ribs, multiple fractures: Code(s): S22.49XA - Multiple fractures of ribs, unspecified side, initial encounter for closed fracture Status: Acute (2) Sepsis: Code(s): A41.9 - Sepsis, unspecified organism Status: Resolved (3) Diarrhea: Qualifiers: Diarrhea type: unspecified type Qualified Code(s): R19.7 - Diarrhea, unspecified Code(s): R19.7 - Diarrhea, unspecified Status: Resolved (4) BRENDAN (acute kidney injury): Code(s): N17.9 - Acute kidney failure, unspecified Status: Acute (5) Chronic constipation: Code(s): K59.09 - Other constipation Status: Acute Subjective Date/time seen: 08/03/23 11:12 Interval history: The patient today has a distended and hard stimach, and he is expierencing, nausea, resulting in his lack of appetitie and food intake.; Patient bowel sounds are very hypoactive. I order a CT scan of his abdomen pelvis but the results indicated persistent blockage of feces in the rectum with slight improvement, as well ongoing swelling and reduced volume of stool in the colon. There is a short section of the colon with thickening in the sigmoid colon, which has decreased length since last exam suggesting colitis. At this time it may be necessary to insert a nasogastric tube..It might be time to transfer the patient as a consultation for GI potentially benefit him. The patient has previously recieved various type of stooll softners, four soap suds enemas, Miralax bid, and lactulose TID and initially was on IV fluids. It is unclear if patient has a possible rectal mass that is preventing him to have stool but there has been not much success at this point and time and I am awaiting a call to discuss with GI [facility] Spoke with Vince Atkins who said to transfer patient and he would be willing to consult on this patient to transfer to hospitalist services. Called and Spoke with [employer] who informed me he would have the hospitalist services to call me back. Discussed with Suzie who states that she will take the patient Objective Data Vital Signs Vital Signs: Vital Signs - 24 hr 08/02/23 16:40 08/02/23 21:21 08/02/23 23:08 Temperature 97.5 F L 98.2 F Pulse Rate 89 90 89 Respiratory Rate 16 17 Blood Pressure 116/82 139/88 Pulse Oximetry 96 94 Oxygen Delivery Room Air Room Air Intake/Output Intake/Output: Intake & Output 07/31/23 08/01/23 08/02/23 08/03/23 23:59 23:59 23:59 23:59 Intake Total 1940 1670 1490 100 Output Total 1250 900 Balance 1940 1670 240 -800 Meds/Results Medications: Active Medications Generic Name Dose Route Start Last Admin Trade Name Freq PRN Reason Stop Dose Admin Acetaminophen 650 mg 07/28/23 10:49 Acetaminophen 325 Mg Tablet PO Q4H PRN Mild Pain (1-3) or Fever Aspirin 81 mg 07/29/23 09:00 08/02/23 09:26 Aspirin 81 Mg Enteric Tablet PO 81 mg QAM DANIAL Administration Benztropine Mesylate 1 mg 07/28/23 22:00 08/02/23 21:20 Benztropine Mesylate 1 Mg Tablet PO 1 mg Q12H DANIAL Administration Bisacodyl 10 mg 07/31/23 09:00 Bisacodyl 10 Mg Suppository RECTAL QAM PRN Constipation Carbamazepine 400 mg 07/28/23 21:00 08/02/23 21:21 Carbamazepine 200 Mg Tablet PO 400 mg HS DANIAL Administration Carvedilol 3.125 mg 07/28/23 21:00 08/02/23 21:21 Carvedilol 3.125 Mg Tablet PO 3.125 mg Q12HR DANIAL Administration Docusate Sodium 100 mg 07/28/23 17:00 08/02/23 18:01 Docusate Sodium 100 Mg Capsule PO 100 mg BID DANIAL Administration Enoxaparin Sodium 40 mg 07/29/23 09:00 08/02/23 09:24 Enoxaparin 40 Mg/0.4 Ml Syringe SUB-Q 40 mg DAILY DANIAL Administration Famotidine 40 mg 07/29/23 09:00 08/02/23 09:26 Famotidine 20 Mg Tablet PO 40 mg DAILY DANIAL Administration Lactulose 20 gm 08/02/23 13:00 08/02/23 18:01 Lactulos
--- NOTE | 2023-08-03 11:20 | PM.TDS ---
Transfer Discharge Sum: Prov Provider Date of admission: 07/28/23 10:50 Primary care physician: Singh Zepeda MD Admitting clinician: Poncho Noonan MD Attending physician on admission: Royal Noonan Discharging clinician: Chava Bailey Anticipated date of transfer: 08/03/23 DS: Admitting Diagnosis Discharge Date 08/03/23 Admitting Diagnosis Fall, Foot pain contusion DS: Discharge Diagnosis Discharge Diagnosis Plan Fecal impaction, Adenoym ileus Transfer Discharge Sum: Med Medications Active and Home Medications: Home Medications aspirin 81 mg capsule 81 mg PO DAILY 05/10/21 [History Confirmed 08/03/23] benztropine 1 mg tablet 1 mg PO BID 05/10/21 [History Confirmed 08/03/23] carvedilol 3.125 mg tablet (Coreg) 3.125 mg PO Q12H 05/10/21 [History Confirmed 08/03/23] docusate sodium 100 mg capsule (Colace) 100 mg PO BID 05/10/21 [History Confirmed 08/03/23] famotidine 40 mg tablet (Pepcid) 40 mg PO DAILY 05/10/21 [History Confirmed 08/03/23] loratadine 10 mg tablet 10 mg PO DAILY 05/10/21 [History Confirmed 08/03/23] lorazepam 1 mg tablet 1 mg PO BID PRN Anxiety 05/10/21 [History Confirmed 08/03/23] pravastatin 80 mg tablet 80 mg PO DAILY 05/10/21 [History Confirmed 08/03/23] sertraline 100 mg tablet (Zoloft) 100 mg PO DAILY 05/10/21 [History Confirmed 08/03/23] sodium chloride 1 gram tablet 1,000 mg PO DAILY 05/10/21 [History Confirmed 08/03/23] carbamazepine 200 mg tablet 400 mg HS 07/28/23 [History Confirmed 08/03/23] bisacodyl 10 mg rectal suppository 10 mg RECTAL DAILY PRN Constipation 08/03/23 [History Confirmed 08/03/23] enoxaparin 40 mg/0.4 mL subcutaneous syringe 40 mg subcut DAILY 08/03/23 [History Confirmed 08/03/23] lactulose 20 gram/30 mL oral solution 20 g PO TID 08/03/23 [History Confirmed 08/03/23] polyethylene glycol 3350 17 gram oral powder packet 17 g PO BID 08/03/23 [History Confirmed 08/03/23] sennosides 8.6 mg tablet (senna) 8.6 mg PO Q12H 08/03/23 [History Confirmed 08/03/23] Transfer Discharge Sum: Hosp Hospital Course Hospital course: Chan Shaikh is a 53 year old male The patient today has a distended and hard stomach, and he is experiencing, nausea, resulting in his lack of appetite and food intake.; Patient bowel sounds are very hypoactive. I order a CT scan of his abdomen pelvis but the results indicated persistent blockage of feces in the rectum with slight improvement, as well ongoing swelling and reduced volume of stool in the colon. There is a short section of the colon with thickening in the sigmoid colon, which has decreased length since last exam suggesting colitis. At this time it may be necessary to insert a nasogastric tube..It might be time to transfer the patient as a consultation for GI potentially benefit him. The patient has previously received various type of stool softeners, four soap suds enemas, Miralax bid, and lactulose TID and initially was on IV fluids. It is unclear if patient has a possible rectal mass that is preventing him to have stool but there has been not much success at this point and time and I am awaiting a call to discuss with GI for Transfer to [facility] accepted patient as consult Suzie REGISTERED DENTAL ASSISTANT [facility] hospialist services accepted patient . Time Spent with Patient Time attestation: Total time spent providing and/or coordinating transfer services: Exam Narrative: see previous note
--- NOTE | 2023-08-03 14:03 | PCPTNOTE ---
pt refused to get up from bed and walk after educating patient on importance of walking and moving. Pt rated his pain an 8/10
[2023-08-03 16:30] VITALS: BP 134/87; PULSE 88; RESP 18; TEMP 36.6; O2SAT 95
--- NOTE | 2023-08-03 16:36 | PC.NURSE ---
Call made to [facility] regarding transfer of patient to [facility]. Eulogio from [facility] acknowledged transfer. [facility] also notified that patient will go to room [address] [facility].
--- NOTE | 2023-08-03 17:30 | PC.NURSE ---
Report given to [facility]. #[phone]. Patient transferring to room 250.
--- NOTE | 2023-08-03 19:10 | PC.NURSE ---
Report given to EMS. Patient transfered to stretcher with SBA. All belongings sent with patient. Transfer packet given to EMS. IV site left in right wrist due to transferring to higher level of care. Patient left floor via stretcher accompanied by EMS.
== END 2023-08-03 19:10 | disposition short-term general hospital (02) | DRG 872 ==
LOC: CHSED 10:53 → CHS2ND 10:57
PROVIDERS: Nurse Practitioner; Admitting Provider Internal Medicine; Emergency Provider Student in an Organized Health Care Education/Training Program; PCP Family Medicine; Visit Provider Internal Medicine
DX: A41.9 Sepsis, unspecified organism (principal); E86.0 Dehydration; I10 Essential (primary) hypertension; E78.00 Pure hypercholesterolemia, unspecified; R56.9 Unspecified convulsions; F32.A Depression, unspecified; Z20.822 Contact with and (suspected) exposure to COVID-19; N17.9 Acute kidney failure, unspecified; N39.0 Urinary tract infection, site not specified; K56.7 Ileus, unspecified; K56.41 Fecal impaction; E87.6 Hypokalemia; M79.671 Pain in right foot; R19.7 Diarrhea, unspecified; S22.42XD Multiple fractures of ribs, left side, subsequent encounter for fracture with routine healing; Z79.82 Long term (current) use of aspirin
CPT/HCPCS: 36415; 71046; 71250; 73630; 74018; 74176; 74177; 80048; 80053; 80307; 81001; 82550; 83605; 83690; 83735; 84484; 85025; 85027; 85610; 85730; 86140; 87040; 87045; 87086; 87324; 87427; 87449; 87493; 87637; 93005; 96361; 96365; 97161; 97165; 97530; 99285; A9270; J0696; J1650; J2543; J3475; J3480; J7030; J7120; Q9967

== ENCOUNTER 2023-08-03 19:45 | Inpatient (IN) | payer MEDICARE, MEDICAID, SELFPAY ==
--- NOTE | ~2023-08-03 | XR_ITS ---
Supine and upright views of the abdomen Clinical history: Constipation COMPARISON: 1124 Findings: Marked air distention of flow. Both large and probably small bowel loops again present. Cor relate for diffuse generalized ileus or possibly distal colonic obstruction. No free air evident. No abnormal mass lesion or calcification is seen. Osseous structures are intact. Impression: Extensive air distention of large and small bowel. Correlate for diffuse ileus, or possibly distal co lonic obstruction. Reviewed, dictated and finalized at [facility]. [employer]SE TRAFFIC SUPERVISOR Impression: Extensive air distention of large and small bowel. Correlate for diffuse ileus, or possibly distal colonic obstruction.
--- NOTE | 2023-08-03 19:56 | PM.IMHP ---
H&P: HPI History of Present Illness Date/Time: 08/03/23 20:45 Chief Complaint: Fecal impaction. Narrative: This is a pleasant 53-year-old male with hypertension, schizophrenia, and anxiety who is being admitted to the medical floor from an outside facility for management of fecal impaction. The patient provides the following history and additional information is obtained via a review of his EMR. He presented to the outside facility several days ago with diarrhea and right foot pain after a fall. X-rays of the foot were reportedly unremarkable. Labs were significant for an increase in creatinine from baseline; renal function has since normalized with IV fluids. He was empirically started on antibiotics for suspected urinary tract infection however urine culture showed no growth. CT scan done for evaluation of diarrhea showed findings of chronic constipation and fecal impaction. Thus far he has been treated with stool softeners, 4 soapsuds enemas, MiraLax b.i.d., and lactulose t.i.d. with minimal improvement. Plans were to insert NG tube for GoLYTELY from above however nursing staff were unable to do so at the other facility and he was transferred here. At the time my evaluation he complains of minimal lower abdominal discomfort. He denies nausea and vomiting but reports that his appetite is not great. Initially I wanted to do a manual disimpaction and enema this evening however he declined as he is tired and wishes to do that in the morning. He denies chest pain shortness a breath. He also denies fever, chills, and sweats. He has no urinary symptoms although bladder feels perhaps a bit distended on exam today. Review of Systems Review of Systems: Twelve systems were reviewed and are negative except for as per HPI. [facility] Past Medical History Medical History (Updated 08/03/23 @ 22:59 by Giovanna Foster PA-C) Anxiety Hyperlipidemia Hypertension Schizophrenia Surgical History Surgical History (Updated 08/03/23 @ 22:54 by Giovanna Foster PA-C) History of cardiac radiofrequency ablation Family History Family History (Updated 08/03/23 @ 22:55 by Giovanna Foster PA-C) Other Family history unknown Social History Social History (Updated 08/03/23 @ 22:55 by Giovanna Foster PA-C) Social History: Surrogate medical decision maker: Mother. Code status: Full code. Smoking status: Former smoker Second hand tobacco smoke exposure: No Alcohol intake: never Substance use: never Substance use type: unknown Do You Feel Safe in your Home?: Yes Lack of Transportation: YES Lack of Food: Never True Current Housing: I Have Housing Concerned About Future Housing: No Difficulty Paying Gas/Electric Bills: No Difficulty Paying for Meds: No Currently Unemployed: No Education: High School Diploma/GED Difficulty w/ Childcare or Family Care: No Living arrangements: assisted living Additional living arrangements comments: Resident at [facility]. Occupation/Education: other Additional occupation/education comments: Disabled. Spiritual care concerns: No Meds Home Medications and Allergies Home Medications Medication Instructions Recorded Confirmed Type aspirin 81 mg capsule 81 mg PO DAILY 05/10/21 08/03/23 History benztropine 1 mg tablet 1 mg PO BID 05/10/21 08/03/23 History carvedilol 3.125 mg tablet (Coreg) 3.125 mg PO Q12H 05/10/21 08/03/23 History docusate sodium 100 mg capsule 100 mg PO BID 05/10/21 08/03/23 History (Colace) famotidine 40 mg tablet (Pepcid) 40 mg PO DAILY 05/10/21 08/03/23 History loratadine 10 mg tablet 10 mg PO DAILY 05/10/21 08/03/23 History lorazepam 1 mg tablet 1 mg PO BID PRN Anxiety 05/10/21 08/03/23 History pravastatin 80 mg tablet 80 mg PO DAILY 05/10/21 08/03/23 History sertraline 100 mg tablet (Zoloft) 100 mg PO DAILY 05/10/21 08/03/23 History sodium chloride 1 gram tablet 1,000 mg PO DAILY 05/10/21 08/03/23 History carbamazepine 200 mg
[2023-08-03 20:38] VITALS: BP 136/90; PULSE 98; RESP 18; TEMP 36.4; O2SAT 95
[2023-08-03 21:10] VITALS: BMI 25.7
--- NOTE | 2023-08-03 21:14 | ADMGEN ---
This patient, Chan Shaikh, was admitted to Medical Room 250-01. Patient/family oriented to hospital policies and general routines including ID bracelet, bed and alarms, visiting hours, pain management, procedures, bathroom and other care routines, personal items, smoking policy, room service/diet, and visiting hours. Information on how to activate the Rapid Response Team has been discussed. Patient/Family are encouraged to report perceived risks to care and to ask questions if they do not understand what they are told or what they should do.
[2023-08-03] MEDS: SODIUM CHLORIDE 0.9% IV 1,000 ML 100 ML IV CONT (23:34)
[2023-08-04 05:40] LABS: Basophils Percent Auto 0.1 % (0.2-1.2); Eosinophils Absolute Auto 0.2 K/mm3 (0-0.3); Eosinophils Percent Auto 2.5 % (0-4.4); Hematocrit 34.4 % (42.0-52.0); Hemoglobin 11.1 g/dL (14.0-18.0); Immature Granulocyte Absolute 0.06 K/mm3 (0.00-0.031); Immature Granulocyte Percent A 0.9 % (0-0.5); Lymphocytes Absolute Auto 1.35 K/mm3 (0.9-3.2); Lymphocytes Percent Auto 20.1 % (18.3-44.2); Mean Corpuscular HGB Conc 32.3 g/dl (32-36); Mean Corpuscular Hemoglobin 28.8 pg (26-34); Mean Corpuscular Volume 89.1 fl (80-100); Mean Platelet Volume 11.3 fl (7.4-10.4); Monocytes Absolute Auto 0.7 K/mm3 (0.1-0.6); Monocytes Percent Auto 10.1 % (2.6-8.5); Neutrophils Absolute Auto 4.5 K/mm3 (1.3-6.7); Neutrophils Percent Auto 66.3 % (45.5-73.1); Platelet Count Result 248 k/mm3 (150-375); Red Blood Count 3.86 M/mm3 (4.6-6.20); Red Cell Distribution Width 14.2 % (11.5-14.5); White Blood Count 6.7 K/mm3 (4.5-10.0)
[2023-08-04 05:51] LABS: Anion Gap 5 mmol/L (8-16); Blood Urea Nitrogen 14 mg/dL (9-20); Calcium 8.1 mg/dL (8.4-10.2); Carbon Dioxide 31 mmol/L (22-30); Chloride 98 mmol/L (98-107); Estimated CRCL calculation 138 ml/min; Estimated Glomerular Filt Rate > 60; Glucose 108 mg/dL (65-110); Magnesium 2.1 mg/dL (1.6-2.3); Potassium 3.9 mmol/L (3.4-5.0); Sodium 134 mmol/L (137-145)
[2023-08-04 05:58] LABS: Iron 29 ug/dL (49-181); Prealbumin 13.6 mg/dL (17.6-36.0)
[2023-08-04 06:00] VITALS: BP 141/81; PULSE 92; RESP 18; TEMP 36.6; O2SAT 95
[2023-08-04 06:09] LABS: Percent Iron Saturation 10 % (20-50)
[2023-08-04 06:57] LABS: Folic Acid 4.9 ng/mL (2.76->20)
--- NOTE | 2023-08-04 08:44 | PM.IMPN ---
Progress Note: A&P Assessment and Plan (1) Fecal impaction: Code(s): K56.41 - Fecal impaction Status: Acute Assessment and Plan: 08/04/23: CT of the abdomen/pelvis from 06/03/24 revealing persistent fecal impaction of the rectum with slight improvement, persistent colonic distention with decrease in volume of colonic stool, short segment of wall thickening of the sigmoid colon. KUB from 07/31/23 showing adynamic ileus Patient has had 4 soap suds enemas, lactulose, miralax, and stool softeners with minimal relief. Will continue lactulose, senokot, bisacodyl suppository, and miralax GI consulted Plan for colonoscopy tomorrow (2) Adynamic ileus: Code(s): K56.0 - Paralytic ileus Status: Acute Assessment and Plan: 08/04/23: see above plan of care (3) Schizophrenia: Code(s): F20.9 - Schizophrenia, unspecified Status: Chronic Assessment and Plan: 08/04/23: Continue Cogentin, lorazepam, and Tegretol (4) Hypothyroidism: Code(s): E03.9 - Hypothyroidism, unspecified Status: Acute Assessment and Plan: 08/04/23: TSH 8.740, Free T4 1.30, Total T3 1.20, subclinical hypothyroidism Will start Synthroid 112 mcg daily to see if there is any improvement with his fatigue and constipation. He will need to follow up with PCP on an outpatient basis for follow up labs and to review his symptoms. If he is not having much improvement of his symptoms it may be reasonable to discontinue the medication considering it is less than 10 uIU/ml. (5) Hypertension: Code(s): I10 - Essential (primary) hypertension Status: Chronic Assessment and Plan: 08/04/23: B/P ranging 136/90-141/81 Coreg continued (6) Hyperlipidemia: Code(s): E78.5 - Hyperlipidemia, unspecified Status: Chronic Assessment and Plan: 08/04/23: Continue pravastatin (7) Normocytic anemia: Code(s): D64.9 - Anemia, unspecified Status: Chronic Assessment and Plan: 08/04/23: Hgb 11.1, Hct 34.4, Vitamin B12 544, folate 4.9 Time Spent With Patient Time with patient: Greater than 35 minutes Subjective Date/time seen: 08/04/23 08:44 Interval history: This is a 53 year old male who presented to the hospital on 08/03/23 from [facility] for evaluation of fecal impaction. Patient has history of schizophrenia and is on medications that contribute to his chronic constipation. He was initially seen at [facility] for diarrhea and right foot pain after a fall. X-ray of the foot was normal. He was noted to have an elevated creatinine which is now resolved after they gave him fluids. He was initially started on antibiotics for suspected UTI, however the UC came back negative. A CT scan of his abdomen was performed which shown chronic constipation and fecal impaction. He was treated with stool softeners, 4 soap suds enemas, Miralax BID, and Lactulose TID with minimal improvement. He was then transferred here for further evaluation and treatment. GI was consulted. He was started on IV fluids. On examination today patient is alert and oriented x3, lying in the bed. His abdomen is very distended however he has normoactive bowel sounds and he states that he is passing gas. He denies any fever, chills, nausea, vomiting, diarrhea, shortness of breath, chest pain, or headache. VSS, he is afebrile, currently on room air. Labs today revealed WBC 6.7, Hgb 11.1, Hct 34.4, Na+ 134, Bicarb 31, BG 108-227, Calcium 8.1, Iron 29, prealbumin 13.6, TSH 8.740, Free T4 1.30, T3 pending. Review of Systems Review of Systems: Twelve systems were reviewed and are negative except for as per HPI. Exam Narrative: General: In no acute distress, well nourished Head: atraumatic, no encephalopathy Eyes: EOMI, PERRLA, sclera clear ENT: moist mucous membranes, nasal passages clear Neck: supple, no JVD, no adenopathy, trachea midline Cardiac: Normal S1 and S
[2023-08-04] MEDS: FAMOTIDINE 20 MG TABLET 40 MG PO (11:15)
[2023-08-04] MEDS: LACTULOSE 20 GM/30 ML UDC PO ×3 (11:15→18:19)
[2023-08-04] MEDS: BENZTROPINE MESYLATE 1 MG TABLET PO ×2 (11:15→18:14)
[2023-08-04] MEDS: SERTRALINE HCL 50 MG TABLET 100 MG PO (11:15)
[2023-08-04] MEDS: ENOXAPARIN 40 MG/0.4 ML SYRINGE SUB-Q (11:15)
[2023-08-04 11:16] VITALS: PULSE 94
[2023-08-04] MEDS: ASPIRIN 81 MG CHEWABLE TABLET PO (11:16)
[2023-08-04] MEDS: carvediloL 3.125 MG TABLET PO ×2 (11:16→20:09)
[2023-08-04] MEDS: PRAVASTATIN SODIUM 20 MG TABLET 80 MG PO (11:16)
[2023-08-04] MEDS: SENNOSIDES 8.6 MG TABLET PO ×2 (11:19→20:09)
[2023-08-04] MEDS: SODIUM CHLORIDE 1 GM TABLET PO (11:19)
[2023-08-04] MEDS: LORATADINE 10 MG TABLET PO (11:19)
[2023-08-04] MEDS: polyethylene glycoL 3350 17 GM POWD.PACK PO ×2 (11:19→18:15)
[2023-08-04 11:22] VITALS: BP 117/80; PULSE 94; RESP 14; O2SAT 97
[2023-08-04 12:42] VITALS: BMI 25.7
--- NOTE | 2023-08-04 12:48 | WPDGICN ---
Assessment and Plan Assessment and plan (1) Fecal impaction: Code(s): K56.41 - Fecal impaction Status: Acute Assessment and Plan: will give bowel prep and colonoscopy tomorrow, will assess if stricture and also treatment with scope (2) Normocytic anemia: Code(s): D64.9 - Anemia, unspecified Status: Chronic (3) Schizophrenia: Code(s): F20.9 - Schizophrenia, unspecified Status: Chronic (4) Chronic constipation: Code(s): K59.09 - Other constipation Status: Acute Assessment and Plan: lately worsening symptom colonoscopy in am GI Consult Note Consult date/time: 08/04/23 12:48 Reason for consult: constipation, fecal impaction HPI: Chan Shaikh is a 53 year old male who is a resident of a longterm setting (intellectual delay, depression and schizophrenia) who was brought to the emergency department after a fall with right foot pain and admitted to [facility] , also had abdominal pain with worsening constipation more than baseline. CT scan showed fecal impaction and has been treated with different medications at another facility including enema, laxatives, ec but no really go BM yet, finally transferred here for further management. CT scan repeated and reviewed, Persistent fecal impaction of the rectum with slight improvement. Persistent colonic distention with decrease in volume of colonic stool. Short segment of wall thickening of the sigmoid colon, decreased in length since the comparison examination, possible mild colitis. No recent colonoscopy. Review of Systems Constitutional: Constitutional: Denies chills Eyes: Eyes: Denies blurry vision ENT: Reports Normal hearing present Cardiovascular: Cardiovascular: Denies chest pain Respiratory: Respiratory: Denies cough Gastrointestinal: Gastrointestinal: Reports abdominal pain and Reports constipation Genitourinary: Genitourinary: Denies dysuria Musculoskeletal: Musculoskeletal: Denies neck pain Integumentary/Breasts: Skin/Breast: Denies rash Neurologic: Denies Abnormal speech present Psychiatric: Psychiatric: Reports anxiety PMFSH Past Medical History Medical History (Updated 08/04/23 @ 09:17 by Melyssa Harrell APRN) Anxiety Hyperlipidemia Hypertension Hypothyroidism Schizophrenia Surgical History Surgical History (Updated 08/03/23 @ 22:54 by Giovanna Foster PA-C) History of cardiac radiofrequency ablation Family History Family History (Updated 08/03/23 @ 22:55 by Giovanna Foster PA-C) Other Family history unknown Social History Social History (Updated 08/03/23 @ 22:55 by Giovanna Foster PA-C) Social History: Surrogate medical decision maker: Mother. Code status: Full code. Smoking status: Former smoker Second hand tobacco smoke exposure: No Alcohol intake: never Substance use: never Substance use type: unknown Do You Feel Safe in your Home?: Yes Lack of Transportation: YES Lack of Food: Never True Current Housing: I Have Housing Concerned About Future Housing: No Difficulty Paying Gas/Electric Bills: No Difficulty Paying for Meds: No Currently Unemployed: No Education: High School Diploma/GED Difficulty w/ Childcare or Family Care: No Living arrangements: assisted living Additional living arrangements comments: Resident at [facility]. Occupation/Education: other Additional occupation/education comments: Disabled. Spiritual care concerns: No Meds Home Medications and Allergies Home Medications Medication Instructions Recorded Confirmed Type aspirin 81 mg capsule 81 mg PO DAILY 05/10/21 08/03/23 History benztropine 1 mg tablet 1 mg PO BID 05/10/21 08/03/23 History carvedilol 3.125 mg tablet (Coreg) 3.125 mg PO Q12H 05/10/21 08/03/23 History docusate sodium 100 mg capsule 100 mg PO BID 05/10/21 08/03/23 History (Colace) famotidine 40 mg tablet (Pepcid) 40 mg PO DAILY 04/21
[2023-08-04 14:00] VITALS: BP 129/89; PULSE 89; RESP 20; TEMP 36.7; O2SAT 99
[2023-08-04] MEDS: polyethylene glycoL 3350 238 GM BOTTLE PO (15:36)
[2023-08-04] MEDS: BISACODYL 5 MG TABLET EC PO (18:19)
[2023-08-04 20:06] VITALS: BP 124/80; PULSE 102; RESP 16; TEMP 36.8; O2SAT 95
[2023-08-04 20:09] VITALS: PULSE 100
[2023-08-04] MEDS: carBAMazepine 200 MG TABLET 400 MG BY MOUTH (20:09)
[2023-08-05] VITALS (8 sets, daily range): BP systolic 119–144; BP diastolic 65–91; PULSE 83–95; RESP 16–18; TEMP 36.2–36.9; O2SAT 95–98
[2023-08-05] MEDS: LEVOTHYROXINE SODIUM 112 MCG TABLET PO (05:31)
[2023-08-05] MEDS: MAGNESIUM CITRATE 300 ML BTL PO (06:13)
--- NOTE | 2023-08-05 07:24 | P.PNIM_ITS ---
Progress Note: A&P Assessment and Plan (1) Fecal impaction: Code(s): K56.41 - Fecal impaction Status: Acute Assessment and Plan: 08/04/23: * CT of the abdomen/pelvis from 06/03/24 revealing persistent fecal impaction of the rectum with slight improvement, persistent colonic distention with decrease in volume of colonic stool, short segment of wall thickening of the sigmoid colon. * KUB from 07/31/23 showing adynamic ileus * Patient has had 4 soap suds enemas, lactulose, miralax, and stool softeners with minimal relief. * Will continue lactulose, senokot, bisacodyl suppository, and miralax * GI consulted * Plan for colonoscopy tomorrow 08/05/23: * Patient received Mag citrate this morning for bowel prep for his colonoscopy today with GI services * he has not had a bowel movement yet, his abdomen is firm, and very distended. * GI following. (2) Adynamic ileus: Code(s): K56.0 - Paralytic ileus Status: Acute Assessment and Plan: 08/04/23: * see above plan of care (3) Schizophrenia: Code(s): F20.9 - Schizophrenia, unspecified Status: Chronic Assessment and Plan: 08/04/23: * Continue Cogentin, lorazepam, and Tegretol 08/05/23: * No change to current treatment plan (4) Hypothyroidism: Code(s): E03.9 - Hypothyroidism, unspecified Status: Acute Assessment and Plan: 08/04/23: * TSH 8.740, Free T4 1.30, Total T3 1.20, subclinical hypothyroidism * Will start Synthroid 112 mcg daily to see if there is any improvement with his fatigue and constipation. He will need to follow up with PCP on an outpatient basis for follow up labs and to review his symptoms. If he is not having much improvement of his symptoms it may be reasonable to discontinue the medication considering it is less than 10 uIU/ml. 08/05/23: * No change to current treatment plan (5) Hypertension: Code(s): I10 - Essential (primary) hypertension Status: Chronic Assessment and Plan: 08/04/23: * B/P ranging 136/90-141/81 * Coreg continued 08/05/23: * No change to current treatment plan (6) Hyperlipidemia: Code(s): E78.5 - Hyperlipidemia, unspecified Status: Chronic Assessment and Plan: 08/04/23: * Continue pravastatin 08/05/23: * No change to current treatment plan (7) Normocytic anemia: Code(s): D64.9 - Anemia, unspecified Status: Chronic Assessment and Plan: 08/04/23: * Hgb 11.1, Hct 34.4, Vitamin B12 544, folate 4.9 08/05/23: * H/H 11.0/35.4 * No change to current treatment plan Time Spent With Patient Time with patient: 15 - 25 minutes Subjective Date/time seen: 08/05/23 07:24 Interval history: 08/04/23: This is a 53 year old male who presented to the hospital on 08/03/23 from [facility] for evaluation of fecal impaction. Patient has history of schizophrenia and is on medications that contribute to his chronic constipation. He was initially seen at [facility] for diarrhea and right foot pain after a fall. X-ray of the foot was normal. He was noted to have an elevated creatinine which is now resolved after they gave him fluids. He was initially started on antibiotics for suspected UTI, however the UC came back negative. A CT scan of his abdomen was performed which shown chronic constipation and fecal impaction. He was treated with stool softeners, 4 soap suds enemas, Miralax BID, and Lactulose TID with minimal improvement. He was then transferred here for further evaluation
--- NOTE | 2023-08-05 07:24 | PM.IMPN ---
Progress Note: A&P Assessment and Plan (1) Fecal impaction: Code(s): K56.41 - Fecal impaction Status: Acute Assessment and Plan: 08/04/23: CT of the abdomen/pelvis from 06/03/24 revealing persistent fecal impaction of the rectum with slight improvement, persistent colonic distention with decrease in volume of colonic stool, short segment of wall thickening of the sigmoid colon. KUB from 07/31/23 showing adynamic ileus Patient has had 4 soap suds enemas, lactulose, miralax, and stool softeners with minimal relief. Will continue lactulose, senokot, bisacodyl suppository, and miralax GI consulted Plan for colonoscopy tomorrow 08/05/23: Patient received Mag citrate this morning for bowel prep for his colonoscopy today with GI services he has not had a bowel movement yet, his abdomen is firm, and very distended. GI following. (2) Adynamic ileus: Code(s): K56.0 - Paralytic ileus Status: Acute Assessment and Plan: 08/04/23: see above plan of care (3) Schizophrenia: Code(s): F20.9 - Schizophrenia, unspecified Status: Chronic Assessment and Plan: 08/04/23: Continue Cogentin, lorazepam, and Tegretol 08/05/23: No change to current treatment plan (4) Hypothyroidism: Code(s): E03.9 - Hypothyroidism, unspecified Status: Acute Assessment and Plan: 08/04/23: TSH 8.740, Free T4 1.30, Total T3 1.20, subclinical hypothyroidism Will start Synthroid 112 mcg daily to see if there is any improvement with his fatigue and constipation. He will need to follow up with PCP on an outpatient basis for follow up labs and to review his symptoms. If he is not having much improvement of his symptoms it may be reasonable to discontinue the medication considering it is less than 10 uIU/ml. 08/05/23: No change to current treatment plan (5) Hypertension: Code(s): I10 - Essential (primary) hypertension Status: Chronic Assessment and Plan: 08/04/23: B/P ranging 136/90-141/81 Coreg continued 08/05/23: No change to current treatment plan (6) Hyperlipidemia: Code(s): E78.5 - Hyperlipidemia, unspecified Status: Chronic Assessment and Plan: 08/04/23: Continue pravastatin 08/05/23: No change to current treatment plan (7) Normocytic anemia: Code(s): D64.9 - Anemia, unspecified Status: Chronic Assessment and Plan: 08/04/23: Hgb 11.1, Hct 34.4, Vitamin B12 544, folate 4.9 08/05/23: H/H 11.0/35.4 No change to current treatment plan Time Spent With Patient Time with patient: 15 - 25 minutes Subjective Date/time seen: 08/05/23 07:24 Interval history: 08/04/23: This is a 53 year old male who presented to the hospital on 08/03/23 from [facility] for evaluation of fecal impaction. Patient has history of schizophrenia and is on medications that contribute to his chronic constipation. He was initially seen at [facility] for diarrhea and right foot pain after a fall. X-ray of the foot was normal. He was noted to have an elevated creatinine which is now resolved after they gave him fluids. He was initially started on antibiotics for suspected UTI, however the UC came back negative. A CT scan of his abdomen was performed which shown chronic constipation and fecal impaction. He was treated with stool softeners, 4 soap suds enemas, Miralax BID, and Lactulose TID with minimal improvement. He was then transferred here for further evaluation and treatment. GI was consulted. He was started on IV fluids. On examination today patient is alert and oriented x3, lying in the bed. His abdomen is very distended however he has normoactive bowel sounds and he states that he is passing gas. He denies any fever, chills, nausea, vomiting, diarrhea, shortness of breath, chest pain, or headache. VSS, he is afebrile, currently on room air. Labs today revealed WBC 6.7, Hgb 11.1, Hct 34.4, Na+ 134, Bic
[2023-08-05 07:55] LABS: Basophils Percent Auto 0.2 % (0.2-1.2); Eosinophils Absolute Auto 0.1 K/mm3 (0-0.3); Eosinophils Percent Auto 0.8 % (0-4.4); Hematocrit 35.4 % (42.0-52.0); Immature Granulocyte Absolute 0.12 K/mm3 (0.00-0.031); Immature Granulocyte Percent A 1.1 % (0-0.5); Lymphocytes Absolute Auto 1.32 K/mm3 (0.9-3.2); Lymphocytes Percent Auto 12.2 % (18.3-44.2); Mean Corpuscular HGB Conc 31.1 g/dl (32-36); Mean Corpuscular Hemoglobin 28.1 pg (26-34); Mean Corpuscular Volume 90.5 fl (80-100); Monocytes Percent Auto 9.2 % (2.6-8.5); Neutrophils Absolute Auto 8.3 K/mm3 (1.3-6.7); Neutrophils Percent Auto 76.5 % (45.5-73.1); Platelet Count Result 306 k/mm3 (150-375); Red Blood Count 3.91 M/mm3 (4.6-6.20); Red Cell Distribution Width 14.2 % (11.5-14.5); White Blood Count 10.8 K/mm3 (4.5-10.0)
[2023-08-05 08:08] LABS: Alanine Aminotransferase 50 U/L (6-50); Albumin Level 3.5 g/dL (3.5-5.1); Alkaline Phosphatase 90 U/L (38-126); Anion Gap 11 mmol/L (8-16); Aspartate Amino Transferase 34 U/L (17-59); Bilirubin,Total 0.4 mg/dL (0.2-1.3); Blood Urea Nitrogen 16 mg/dL (9-20); Calcium 8.2 mg/dL (8.4-10.2); Carbon Dioxide 22 mmol/L (22-30); Chloride 102 mmol/L (98-107); Estimated CRCL calculation 138 ml/min; Estimated Glomerular Filt Rate > 60; Glucose 119 mg/dL (65-110); Magnesium 2.5 mg/dL (1.6-2.3); Phosphorus 3.4 mg/dL (2.5-4.5); Potassium 2.8 mmol/L (3.4-5.0); Sodium 135 mmol/L (137-145)
[2023-08-05] MEDS: carvediloL 3.125 MG TABLET PO ×2 (09:49→20:40)
[2023-08-05] MEDS: ASPIRIN 81 MG CHEWABLE TABLET PO (09:49)
[2023-08-05] MEDS: BENZTROPINE MESYLATE 1 MG TABLET PO ×2 (09:50→17:22)
[2023-08-05] MEDS: ENOXAPARIN 40 MG/0.4 ML SYRINGE SUB-Q (09:50)
[2023-08-05] MEDS: SERTRALINE HCL 50 MG TABLET 100 MG PO (09:50)
[2023-08-05] MEDS: SODIUM CHLORIDE 1 GM TABLET PO (09:50)
[2023-08-05] MEDS: POTASSIUM CHLORIDE INJ 40 MEQ in SODIUM CHLORIDE 0.9% IV 500 ML 130 MEQ IVPB (10:59)
[2023-08-05] MEDS: LACTATED RINGERS 1,000 ML 150 ML IV CONT (12:22)
--- NOTE | 2023-08-05 12:33 | WPDANESEPPF ---
Anes - Initial Pre Proc Eval Procedure: Operation Date: 08/05/23 14:00 Proposed Procedures p Colonoscopy - Tyrone Alonso MD Date/Time: 08/05/23 12:33 Surgeon: Ciro Root MD Pre Op Diagnosis: Fecal Impaction Patient Data Age: 53 Gender: M Height: 1.73 m Weight: 76.6 kg Last Vital Signs Temp 97.1 F L 08/05/23 12:19 Pulse 88 08/05/23 12:19 Resp 18 08/05/23 12:19 BP 126/91 H 08/05/23 12:19 Pulse Ox 95 08/05/23 12:19 O2 Del Method Room Air 08/05/23 12:19 Allergies Allergy/AdvReac Type Severity Reaction Status Date / Time No Known Allergies Allergy Verified 08/05/23 12:17 Home Medications Medication Instructions Recorded Confirmed Type aspirin 81 mg capsule 81 mg PO DAILY 05/10/21 08/03/23 History benztropine 1 mg tablet 1 mg PO BID 05/10/21 08/03/23 History carvedilol 3.125 mg tablet (Coreg) 3.125 mg PO Q12H 05/10/21 08/03/23 History docusate sodium 100 mg capsule 100 mg PO BID 05/10/21 08/03/23 History (Colace) famotidine 40 mg tablet (Pepcid) 40 mg PO DAILY 05/10/21 08/03/23 History loratadine 10 mg tablet 10 mg PO DAILY 05/10/21 08/03/23 History lorazepam 1 mg tablet 1 mg PO BID PRN Anxiety 05/10/21 08/03/23 History pravastatin 80 mg tablet 80 mg PO DAILY 05/10/21 08/03/23 History sertraline 100 mg tablet (Zoloft) 100 mg PO DAILY 05/10/21 08/03/23 History sodium chloride 1 gram tablet 1,000 mg PO DAILY 05/10/21 08/03/23 History carbamazepine 200 mg tablet 400 mg HS 07/28/23 08/03/23 History bisacodyl 10 mg rectal suppository 10 mg RECTAL DAILY PRN Constipation 08/03/23 08/03/23 History enoxaparin 40 mg/0.4 mL 40 mg subcut DAILY 08/03/23 08/03/23 History subcutaneous syringe lactulose 20 gram/30 mL oral 20 g PO TID 08/03/23 08/03/23 History solution polyethylene glycol 3350 17 gram 17 g PO BID 08/03/23 08/03/23 History oral powder packet sennosides 8.6 mg tablet (senna) 8.6 mg PO Q12H 08/03/23 08/03/23 History Laboratory Tests 08/05/23 07:48 WBC 10.8 H K/mm3 (4.5-10.0) RBC 3.91 L M/mm3 (4.6-6.20) Hgb 11.0 L g/dL (14.0-18.0) Hct 35.4 L % (42.0-52.0) MCV 90.5 fl (80-100) MCH 28.1 pg (26-34) MCHC 31.1 L g/dl (32-36) RDW 14.2 % (11.5-14.5) Plt Count 306 k/mm3 (150-375) MPV 11.0 H fl (7.4-10.4) Immature Gran % (Auto) 1.1 H % (0-0.5) Neut % (Auto) 76.5 H % (45.5-73.1) Lymph % (Auto) 12.2 L % (18.3-44.2) [place] % (Auto) 9.2 H % (2.6-8.5) Eos % (Auto) 0.8 % (0-4.4) Baso % (Auto) 0.2 % (0.2-1.2) Lymph # (Auto) 1.32 K/mm3 (0.9-3.2) [place] # (Auto) 1.0 H K/mm3 (0.1-0.6) Eos # (Auto) 0.1 K/mm3 (0-0.3) Baso # (Auto) 0.0 K/mm3 (0.0-0.1) Abs Immat Gran (auto) 0.12 H K/mm3 (0.00-0.031) Absolute Neuts (auto) 8.3 H K/mm3 (1.3-6.7) Absolute Nucleated RBC 0.0 K/mm3 (0.0-0.012) Nucleated RBC % 0.0 % (0.0-0.2) Sodium 135 L mmol/L (137-145) Potassium 2.8 L* mmol/L (3.4-5.0) Chloride 102 mmol/L (98-107) Carbon Dioxide 22 mmol/L (22-30) Anion Gap 11 mmol/L (8-16) BUN 16 mg/dL (9-20) Creatinine 0.50 L mg/dL (0.7-1.3) Estim Creat Clear Calc 138 ml/min Estimated GFR > 60 (59 - ) Glucose 119 H mg/dL (65-110) Calcium 8.2 L mg/dL (8.4-10.2) Phosphorus 3.4 mg/dL (2.5-4.5) Magnesium 2.5 H mg/dL (1.6-2.3) Total Bilirubin 0.4 mg/dL (0.2-1.3) AST 34 U/L (17-59) ALT 50 U/L (6-50) Alkaline Phosphatase 90 U/L (38-126) Total Protein 7.0 g/dL (6.3-8.2) Albumin 3.5 g/dL (3.5-5.1) Patient hx anesthesia problems: none Family hx anesthesia problems: none Results Review: All pre-operative results and documents have been reviewed as part of the pre-operative evaluation. [facility] Past Medical History Medical History (Updated 08/04/23 @ 09:17 by Melyssa Harrell, CHRISTIAN) Anxiety Hyperlipidemia Hypertension Hypothyroidism
--- NOTE | 2023-08-05 12:57 | SUR.OPER ---
1247: ANESTHESIA TUBED PT PRIOR TO PROCEDURE
[2023-08-05] MEDS: LACTULOSE 20 GM/30 ML UDC PO (17:22)
[2023-08-05] MEDS: polyethylene glycoL 3350 17 GM POWD.PACK PO (17:22)
[2023-08-05] MEDS: KCL 20MEQ/0.9% SOD CHL 1,000 ML 100 ML IV CONT (17:22)
[2023-08-05] MEDS: carBAMazepine 200 MG TABLET 400 MG BY MOUTH (20:40)
[2023-08-06] VITALS (7 sets, daily range): BP systolic 110–125; BP diastolic 67–72; PULSE 82–90; RESP 16; TEMP 36.4–36.6; O2SAT 93–96
[2023-08-06 05:31] LABS: Basophils Percent Auto 0.1 % (0.2-1.2); Eosinophils Absolute Auto 0.1 K/mm3 (0-0.3); Eosinophils Percent Auto 1.3 % (0-4.4); Hematocrit 30.3 % (42.0-52.0); Hemoglobin 9.2 g/dL (14.0-18.0); Immature Granulocyte Absolute 0.05 K/mm3 (0.00-0.031); Immature Granulocyte Percent A 0.7 % (0-0.5); Lymphocytes Absolute Auto 1.34 K/mm3 (0.9-3.2); Lymphocytes Percent Auto 17.5 % (18.3-44.2); Mean Corpuscular HGB Conc 30.4 g/dl (32-36); Mean Corpuscular Hemoglobin 28.1 pg (26-34); Mean Corpuscular Volume 92.7 fl (80-100); Mean Platelet Volume 10.7 fl (7.4-10.4); Monocytes Absolute Auto 0.5 K/mm3 (0.1-0.6); Neutrophils Absolute Auto 5.6 K/mm3 (1.3-6.7); Neutrophils Percent Auto 73.4 % (45.5-73.1); Platelet Count Result 264 k/mm3 (150-375); Red Blood Count 3.27 M/mm3 (4.6-6.20); Red Cell Distribution Width 14.3 % (11.5-14.5); White Blood Count 7.7 K/mm3 (4.5-10.0)
[2023-08-06 05:42] LABS: Alanine Aminotransferase 34 U/L (6-50); Alkaline Phosphatase 70 U/L (38-126); Anion Gap 4 mmol/L (8-16); Aspartate Amino Transferase 33 U/L (17-59); Bilirubin,Total 0.4 mg/dL (0.2-1.3); Blood Urea Nitrogen 14 mg/dL (9-20); Calcium 7.6 mg/dL (8.4-10.2); Carbon Dioxide 28 mmol/L (22-30); Chloride 106 mmol/L (98-107); Estimated CRCL calculation 138 ml/min; Estimated Glomerular Filt Rate > 60; Glucose 84 mg/dL (65-110); Potassium 3.6 mmol/L (3.4-5.0); Sodium 138 mmol/L (137-145)
[2023-08-06] MEDS: LEVOTHYROXINE SODIUM 112 MCG TABLET PO (05:45)
--- NOTE | 2023-08-06 08:03 | WPDANESPN ---
Anes - Prog Note Post-Op Date/Time: 08/06/23 08:03 Cardiovascular status: normal Respiratory status: normal Airway patency: baseline Mental status: baseline Post-Op hydration status: normal Vital Signs: Last Vital Signs Temp 36.6 C 08/06/23 05:51 Pulse 82 08/06/23 05:51 Resp 16 08/06/23 05:51 BP 110/68 08/06/23 05:51 Pulse Ox 95 08/06/23 05:51 O2 Del Method Room Air 08/05/23 13:52 O2 Flow Rate 2 08/05/23 13:34 Pain Score (VAS): 0/10 I/O: Intake & Output 08/05/23 08/06/23 08/06/23 23:59 07:59 15:59 Intake Total 600 1050 Balance 600 1050 Laboratory Tests 08/06/23 05:14 08/06/23 05:14 08/05/23 08/06/23 07:48 05:14 WBC 7.7 RBC 3.27 L Hgb 9.2 L Hct 30.3 L MCV 92.7 MCH 28.1 MCHC 30.4 L RDW 14.3 Plt Count 264 MPV 10.7 H Immature Gran % (Auto) 0.7 H Neut % (Auto) 73.4 H Lymph % (Auto) 17.5 L [place] % (Auto) 7.0 Eos % (Auto) 1.3 Baso % (Auto) 0.1 L Lymph # (Auto) 1.34 [place] # (Auto) 0.5 Eos # (Auto) 0.1 Baso # (Auto) 0.0 Abs Immat Gran (auto) 0.05 H Absolute Neuts (auto) 5.6 Absolute Nucleated RBC 0.0 Nucleated RBC % 0.0 Sodium 135 L 138 Potassium 2.8 L* 3.6 Chloride 102 106 Carbon Dioxide 22 28 Anion Gap 11 4 L BUN 16 14 Creatinine 0.50 L 0.50 L Estim Creat Clear Calc 138 138 Estimated GFR > 60 > 60 Glucose 119 H 84 Calcium 8.2 L 7.6 L Phosphorus 3.4 Magnesium 2.5 H Total Bilirubin 0.4 0.4 AST 34 33 ALT 50 34 Alkaline Phosphatase 90 70 Total Protein 7.0 6.0 L Albumin 3.5 3.0 L Post-procedural complaints: none Patient Feedback: Patient satisfied with anesthetic care.
[2023-08-06] MEDS: carvediloL 3.125 MG TABLET PO ×2 (09:10→20:26)
[2023-08-06] MEDS: SERTRALINE HCL 50 MG TABLET 100 MG PO (09:10)
[2023-08-06] MEDS: ASPIRIN 81 MG CHEWABLE TABLET PO (09:10)
[2023-08-06] MEDS: SODIUM CHLORIDE 1 GM TABLET PO (09:11)
[2023-08-06] MEDS: BENZTROPINE MESYLATE 1 MG TABLET PO ×2 (09:11→17:28)
[2023-08-06] MEDS: LORATADINE 10 MG TABLET PO (09:11)
[2023-08-06] MEDS: PRAVASTATIN SODIUM 20 MG TABLET 80 MG PO (09:11)
[2023-08-06] MEDS: ENOXAPARIN 40 MG/0.4 ML SYRINGE SUB-Q (09:12)
[2023-08-06] MEDS: FAMOTIDINE 20 MG TABLET 40 MG PO (09:12)
[2023-08-06] MEDS: SIMETHICONE 125 MG CHEW TAB PO ×3 (12:47→20:26)
--- NOTE | 2023-08-06 14:08 | P.PNIM_ITS ---
Progress Note: A&P Assessment and Plan (1) Fecal impaction: Code(s): K56.41 - Fecal impaction Status: Acute Assessment and Plan: 08/04/23: * CT of the abdomen/pelvis from 06/03/24 revealing persistent fecal impaction of the rectum with slight improvement, persistent colonic distention with decrease in volume of colonic stool, short segment of wall thickening of the sigmoid colon. * KUB from 07/31/23 showing adynamic ileus * Patient has had 4 soap suds enemas, lactulose, miralax, and stool softeners with minimal relief. * Will continue lactulose, senokot, bisacodyl suppository, and miralax * GI consulted * Plan for colonoscopy tomorrow 08/05/23: * Patient received Mag citrate this morning for bowel prep for his colonoscopy today with GI services * he has not had a bowel movement yet, his abdomen is firm, and very distended. * GI following. 08/06: * Status post colonoscopy with stool retrieval appears much better today. * Familiar with this patient from prior facility and his abdomen size has significantly decreased and is now soft when it had previously been firm. * Stop lactulose, hold senna and MiraLax until 08/08 (2) Adynamic ileus: Code(s): K56.0 - Paralytic ileus Status: Acute Assessment and Plan: 08/04/23: * see above plan of care (3) Schizophrenia: Code(s): F20.9 - Schizophrenia, unspecified Status: Chronic Assessment and Plan: 08/04/23: * Continue Cogentin, lorazepam, and Tegretol 08/05/23: * No change to current treatment plan (4) Hypothyroidism: Code(s): E03.9 - Hypothyroidism, unspecified Status: Acute Assessment and Plan: 08/04/23: * TSH 8.740, Free T4 1.30, Total T3 1.20, subclinical hypothyroidism * Will start Synthroid 112 mcg daily to see if there is any improvement with his fatigue and constipation. He will need to follow up with PCP on an outpatient basis for follow up labs and to review his symptoms. If he is not having much improvement of his symptoms it may be reasonable to discontinue the medication considering it is less than 10 uIU/ml. 08/05/23: * No change to current treatment plan (5) Hypertension: Code(s): I10 - Essential (primary) hypertension Status: Chronic Assessment and Plan: 08/04/23: * B/P ranging 136/90-141/81 * Coreg continued 08/05/23: * No change to current treatment plan (6) Hyperlipidemia: Code(s): E78.5 - Hyperlipidemia, unspecified Status: Chronic Assessment and Plan: 08/04/23: * Continue pravastatin 08/05/23: * No change to current treatment plan (7) Normocytic anemia: Code(s): D64.9 - Anemia, unspecified Status: Chronic Assessment and Plan: 08/04/23: * Hgb 11.1, Hct 34.4, Vitamin B12 544, folate 4.9 08/05/23: * H/H 11.0/35.4 * No change to current treatment plan Time Spent With Patient Time with patient: 25 - 35 minutes Subjective Date/time seen: 08/06/23 14:08 Interval history: Patient tolerating full liquid diet thus far, will advance to regular diet. Abdomen is very soft nontender. This is significantly improved from before colonoscopy. Patient denies any nausea or vomiting. Gas-X added due to remaining large amount gas in small intestines as noted on radiograph. Patient still having diarrheal stools. Hold lactulose and senna which were both recently new added medications prior to colonoscopy for constipation. Decrease MiraLax to once daily but hold until 08/08. Review of Systems
--- NOTE | 2023-08-06 14:08 | PM.IMPN ---
Progress Note: A&P Assessment and Plan (1) Fecal impaction: Code(s): K56.41 - Fecal impaction Status: Acute Assessment and Plan: 08/04/23: CT of the abdomen/pelvis from 06/03/24 revealing persistent fecal impaction of the rectum with slight improvement, persistent colonic distention with decrease in volume of colonic stool, short segment of wall thickening of the sigmoid colon. KUB from 07/31/23 showing adynamic ileus Patient has had 4 soap suds enemas, lactulose, miralax, and stool softeners with minimal relief. Will continue lactulose, senokot, bisacodyl suppository, and miralax GI consulted Plan for colonoscopy tomorrow 08/05/23: Patient received Mag citrate this morning for bowel prep for his colonoscopy today with GI services he has not had a bowel movement yet, his abdomen is firm, and very distended. GI following. 08/06: Status post colonoscopy with stool retrieval appears much better today. Familiar with this patient from prior facility and his abdomen size has significantly decreased and is now soft when it had previously been firm. Stop lactulose, hold senna and MiraLax until 08/08 (2) Adynamic ileus: Code(s): K56.0 - Paralytic ileus Status: Acute Assessment and Plan: 08/04/23: see above plan of care (3) Schizophrenia: Code(s): F20.9 - Schizophrenia, unspecified Status: Chronic Assessment and Plan: 08/04/23: Continue Cogentin, lorazepam, and Tegretol 08/05/23: No change to current treatment plan (4) Hypothyroidism: Code(s): E03.9 - Hypothyroidism, unspecified Status: Acute Assessment and Plan: 08/04/23: TSH 8.740, Free T4 1.30, Total T3 1.20, subclinical hypothyroidism Will start Synthroid 112 mcg daily to see if there is any improvement with his fatigue and constipation. He will need to follow up with PCP on an outpatient basis for follow up labs and to review his symptoms. If he is not having much improvement of his symptoms it may be reasonable to discontinue the medication considering it is less than 10 uIU/ml. 08/05/23: No change to current treatment plan (5) Hypertension: Code(s): I10 - Essential (primary) hypertension Status: Chronic Assessment and Plan: 08/04/23: B/P ranging 136/90-141/81 Coreg continued 08/05/23: No change to current treatment plan (6) Hyperlipidemia: Code(s): E78.5 - Hyperlipidemia, unspecified Status: Chronic Assessment and Plan: 08/04/23: Continue pravastatin 08/05/23: No change to current treatment plan (7) Normocytic anemia: Code(s): D64.9 - Anemia, unspecified Status: Chronic Assessment and Plan: 08/04/23: Hgb 11.1, Hct 34.4, Vitamin B12 544, folate 4.9 08/05/23: H/H 11.0/35.4 No change to current treatment plan Time Spent With Patient Time with patient: 25 - 35 minutes Subjective Date/time seen: 08/06/23 14:08 Interval history: Patient tolerating full liquid diet thus far, will advance to regular diet. Abdomen is very soft nontender. This is significantly improved from before colonoscopy. Patient denies any nausea or vomiting. Gas-X added due to remaining large amount gas in small intestines as noted on radiograph. Patient still having diarrheal stools. Hold lactulose and senna which were both recently new added medications prior to colonoscopy for constipation. Decrease MiraLax to once daily but hold until 08/08. Review of Systems Review of Systems: Twelve systems were reviewed and are negative except for as per HPI. Exam Narrative: GENERAL: Well-appearing, well-nourished, and in no acute distress. HEAD: Normocephalic, atraumatic. ENT:? Mucous membranes moist. CHEST: Clear to auscultation.? No respiratory distress. HEART: Regular rate and rhythm. ? Normal peripheral pulses. ABDOMEN: Soft, nontender, mild gaseous distension, hyperactive bowel sounds EXTREMITIES: Normal range of
--- NOTE | 2023-08-06 14:21 | WPDGIPROGNO ---
Progress Note: A&P Assessment and Plan (1) Fecal impaction: Code(s): K56.41 - Fecal impaction Status: Acute Assessment and Plan: he is having BM now, no worrisome lesions by colonoscopy but poor prep abdominal less distended and better will advance diet and reassess (2) Chronic constipation: Code(s): K59.09 - Other constipation Status: Acute (3) Adynamic ileus: Code(s): K56.0 - Paralytic ileus Status: Acute Subjective Date/time seen: 08/06/23 14:21 Interval history: colonoscopy yesterday with large amount of liquid stool that was removed/suctioned, since with more liquid stool abdomen less distended and feeling better tolerated liquid diet and he is hungry Review of Systems Review of Systems: All systems reviewed & are unremarkable except as noted in HPI and below Exam Const: General: comfortable and no acute distress HENMT: Face/Nose/Sinus: Normal nares present Eyes: General: appearance normal, both eyes and all related structures Neck: Neck: supple Resp: Auscultation: clear to auscultation bilaterally Cardio: Rate: regular rate Rhythm: regular rhythm GI: GI Palp: Yes Soft to palpation, No Tenderness to palpation present (GI) and No Guarding due to palpation present (GI) Auscultation: normal bowel sounds Other: less distended Skin: General skin exam: normal color Neuro: Speech: normal speech Motor exam (neuro): 5/5 motor strength present throughout Extrem: General: normal to inspection Psych: Affect: normal affect Objective Data Vital Signs Vital Signs: Vital Signs - 24 hr 08/05/23 15:30 08/05/23 20:40 08/05/23 20:40 Temperature 97.4 F L 98.5 F Pulse Rate 83 85 85 Respiratory Rate 18 16 Blood Pressure 132/78 125/77 Pulse Oximetry 95 96 Oxygen Delivery 08/06/23 05:51 08/06/23 09:09 08/06/23 09:10 Temperature 97.8 F Pulse Rate 82 90 90 Respiratory Rate 16 Blood Pressure 110/68 113/72 Pulse Oximetry 95 93 Oxygen Delivery 08/06/23 09:15 Temperature Pulse Rate Respiratory Rate Blood Pressure Pulse Oximetry Oxygen Delivery Room Air Intake/Output Intake/Output: Intake & Output 08/03/23 08/04/23 08/05/23 08/06/23 23:59 23:59 23:59 23:59 Intake Total 650 1800 Balance 650 1800 Meds/Results Medications: Active Medications Generic Name Dose Route Start Last Admin Trade Name Elizabet PRN Reason Stop Dose Admin Aspirin 81 mg 08/04/23 08:00 08/06/23 09:10 Aspirin 81 Mg Chewable Tablet PO 81 mg DAILY@0800 DANIAL Administration Benztropine Mesylate 1 mg 08/04/23 09:00 08/06/23 09:11 Benztropine Mesylate 1 Mg Tablet PO 1 mg BID [facility] Administration Bisacodyl 10 mg 08/04/23 09:02 Bisacodyl 10 Mg Suppository RECTAL DAILY PRN Constipation Carbamazepine 400 mg 08/03/23 23:25 08/05/23 20:40 Carbamazepine 200 Mg Tablet BY MOUTH 400 mg HS [facility] Administration Carvedilol 3.125 mg 08/03/23 23:15 08/06/23 09:10 Carvedilol 3.125 Mg Tablet PO 3.125 mg Q12HR [facility] Administration Enoxaparin Sodium 40 mg 08/04/23 09:00 08/06/23 09:12 Enoxaparin 40 Mg/0.4 Ml Syringe SUB-Q 40 mg DAILY [facility] Administration Famotidine 40 mg 08/04/23 09:00 08/06/23 09:12 Famotidine 20 Mg Tablet PO 40 mg DAILY [facility] Administration Levothyroxine Sodium 112 mcg 08/05/23 06:30 08/06/23 05:45 Levothyroxine Sodium 112 Mcg Tablet PO 112 mcg DAILY@0630 [facility] Administration Loratadine 10 mg 08/04/23 09:00 08/06/23 09:11 Loratadine 10 Mg Tablet PO 10 mg DAILY [facility] Administration Lorazepam 1 mg 08/03/23 23:15 Lorazepam (*Crx) 1 Mg Tablet PO BID PRN Anxiety Polyethylene Glycol 17 gm 08/08/23 09:00 Polyethylene Glycol 3350 17 Gm Powd.Pack PO DAILY [facility] Pravastatin Sodium 80 mg 08/04/23 09:00 08/06/23 09:11 Pravastatin Sodium 20 Mg Tablet PO 80 mg DAILY [facility] Administration Senna 8.6 mg 08/03/23 23:1
[2023-08-06] MEDS: carBAMazepine 200 MG TABLET 400 MG BY MOUTH (20:26)
[2023-08-07 05:52] LABS: Basophils Percent Auto 0.1 % (0.2-1.2); Eosinophils Absolute Auto 0.1 K/mm3 (0-0.3); Eosinophils Percent Auto 1.4 % (0-4.4); Hematocrit 26.9 % (42.0-52.0); Hemoglobin 8.6 g/dL (14.0-18.0); Immature Granulocyte Absolute 0.02 K/mm3 (0.00-0.031); Immature Granulocyte Percent A 0.3 % (0-0.5); Lymphocytes Absolute Auto 1.66 K/mm3 (0.9-3.2); Lymphocytes Percent Auto 21.3 % (18.3-44.2); Mean Corpuscular Hemoglobin 28.5 pg (26-34); Mean Corpuscular Volume 89.1 fl (80-100); Mean Platelet Volume 10.4 fl (7.4-10.4); Monocytes Absolute Auto 0.6 K/mm3 (0.1-0.6); Monocytes Percent Auto 7.2 % (2.6-8.5); Neutrophils Absolute Auto 5.4 K/mm3 (1.3-6.7); Neutrophils Percent Auto 69.7 % (45.5-73.1); Platelet Count Result 266 k/mm3 (150-375); Red Blood Count 3.02 M/mm3 (4.6-6.20); Red Cell Distribution Width 14.2 % (11.5-14.5); White Blood Count 7.8 K/mm3 (4.5-10.0)
[2023-08-07 06:12] LABS: Alanine Aminotransferase 41 U/L (6-50); Albumin Level 2.8 g/dL (3.5-5.1); Alkaline Phosphatase 70 U/L (38-126); Anion Gap 6 mmol/L (8-16); Aspartate Amino Transferase 42 U/L (17-59); Bilirubin,Total 0.3 mg/dL (0.2-1.3); Blood Urea Nitrogen 7 mg/dL (9-20); Calcium 7.2 mg/dL (8.4-10.2); Carbon Dioxide 30 mmol/L (22-30); Chloride 100 mmol/L (98-107); Estimated CRCL calculation 138 ml/min; Estimated Glomerular Filt Rate > 60; Glucose 93 mg/dL (65-110); Potassium 2.6 mmol/L (3.4-5.0); Sodium 136 mmol/L (137-145)
[2023-08-07] MEDS: LEVOTHYROXINE SODIUM 112 MCG TABLET PO (06:30)
[2023-08-07 06:31] VITALS: BP 126/74; PULSE 77; RESP 16; TEMP 36.4; O2SAT 95
[2023-08-07 08:28] VITALS: BP 121/74; PULSE 77; O2SAT 95
[2023-08-07 08:29] VITALS: PULSE 77
[2023-08-07] MEDS: SODIUM CHLORIDE 1 GM TABLET PO (08:29)
[2023-08-07] MEDS: carvediloL 3.125 MG TABLET PO (08:29)
[2023-08-07] MEDS: PRAVASTATIN SODIUM 20 MG TABLET 80 MG PO (08:29)
[2023-08-07] MEDS: SERTRALINE HCL 50 MG TABLET 100 MG PO (08:30)
[2023-08-07] MEDS: BENZTROPINE MESYLATE 1 MG TABLET PO (08:30)
[2023-08-07] MEDS: FAMOTIDINE 20 MG TABLET 40 MG PO (08:30)
[2023-08-07] MEDS: LORATADINE 10 MG TABLET PO (08:30)
[2023-08-07] MEDS: POTASSIUM CHLORIDE 20 MEQ ER TABLET 60 MEQ PO (08:31)
[2023-08-07] MEDS: ASPIRIN 81 MG CHEWABLE TABLET PO (08:31)
[2023-08-07] MEDS: SIMETHICONE 125 MG CHEW TAB PO ×2 (08:31→12:46)
[2023-08-07] MEDS: ENOXAPARIN 40 MG/0.4 ML SYRINGE SUB-Q (08:41)
[2023-08-07] MEDS: POTASSIUM CHLORIDE INJ 40 MEQ in SODIUM CHLORIDE 0.9% IV 500 ML 130 MEQ IVPB (08:41)
--- NOTE | 2023-08-07 12:12 | PM.DS ---
DS: Admitting Diagnosis Discharge Date 08/07/2023 Admitting Diagnosis fecal impaction, adynamic ileus, anemia, HTN, HLD, schizophrenia DS: Discharge Diagnosis Discharge Diagnosis (1) Fecal impaction: Code(s): K56.41 - Fecal impaction Status: Acute (2) Adynamic ileus: Code(s): K56.0 - Paralytic ileus Status: Acute (3) Schizophrenia: Code(s): F20.9 - Schizophrenia, unspecified Status: Chronic (4) Hypothyroidism: Code(s): E03.9 - Hypothyroidism, unspecified Status: Acute (5) Hypertension: Code(s): I10 - Essential (primary) hypertension Status: Chronic (6) Hyperlipidemia: Code(s): E78.5 - Hyperlipidemia, unspecified Status: Chronic (7) Normocytic anemia: Code(s): D64.9 - Anemia, unspecified Status: Chronic DS: Summary Hospital Course Hospital Course: Patient was transferred from [facility] where he was inpatient for 6 days with constipation. Despite multiple soap suds enemas and numerous oral stool softeners and laxatives, patient was only getting more distended abdomen. There was never true obstruction but he had significant fecal impaction that was unable to be relieved. Patient was transferred to [facility] for GI evaluation. Patient was taken for colonoscopy and had mechanical relief of fecal impaction. With this patient was again able to tolerate diet. Potassium dropped due to extensive laxative use and this was replaced and patient discharged on potassium supplementation. Status at Discharge Cognitive/behavioral status at discharge: awake, alert, oriented and pleasant Functional status at discharge: independent ambulation Overall status at discharge: patient is progressing back to baseline Time Spent with Patient Time attestation: Total time spent providing and/or coordinating discharge services: 35 minutes Time spent: Greater than 30 minutes Exam Narrative: GENERAL: Well-appearing, well-nourished, and in no acute distress. HEAD: Normocephalic, atraumatic. ENT:? Mucous membranes moist. CHEST: Clear to auscultation.? No respiratory distress. HEART: Regular rate and rhythm. ? Normal peripheral pulses. ABDOMEN: Soft, nontender, mild gaseous distension, hyperactive bowel sounds EXTREMITIES: Normal range of motion. No peripheral edema. SKIN: Warm dry normal color NEURO: Alert and oriented x3. PSYCH: Normal mood and affect DS: Data Data Completed and Pending Completed studies during hospitalization: abdomen xray Labs on day of discharge: Labs from last 24 hours 08/07/23 05:37 WBC 7.8 RBC 3.02 L Hgb 8.6 L Hct 26.9 L MCV 89.1 MCH 28.5 MCHC 32.0 RDW 14.2 Plt Count 266 MPV 10.4 Immature Gran % (Auto) 0.3 Neut % (Auto) 69.7 Lymph % (Auto) 21.3 Evans % (Auto) 7.2 Eos % (Auto) 1.4 Baso % (Auto) 0.1 L Lymph # (Auto) 1.66 Evans # (Auto) 0.6 Eos # (Auto) 0.1 Baso # (Auto) 0.0 Abs Immat Gran (auto) 0.02 Absolute Neuts (auto) 5.4 Absolute Nucleated RBC 0.0 Nucleated RBC % 0.0 Sodium 136 L Potassium 2.6 L* Chloride 100 Carbon Dioxide 30 Anion Gap 6 L BUN 7 L D Creatinine 0.50 L Estim Creat Clear Calc 138 Estimated GFR > 60 Glucose 93 Calcium 7.2 L Total Bilirubin 0.3 AST 42 ALT 41 Alkaline Phosphatase 70 Total Protein 6.0 L Albumin 2.8 L Procedures/Treatments: Colonoscopy with mechanical clearance of stool impaction Discharge Plan Discharge Attending physician on discharge: Bk Liang Consulting providers: Tyrone Alonso; Melyssa Harrell; Eugenio Mccoy; Giovanna Foster; Meño Watson; Hussein Eubanks Discharging Clinician: Clifford Cantor Anticipated Discharge Date/Time: 08/07/23 15:00 Patient Disposition: Home, Self-Care Activity: as tolerated Diet: as tolerated Patient Instructions: Antibiotic Form, Pain Management in Older Adults (DC) Stand Alone Forms:
--- NOTE | 2023-08-07 12:57 | WPDGIPROGNO ---
Progress Note: A&P Assessment and Plan (1) Fecal impaction: Code(s): K56.41 - Fecal impaction Status: Acute Assessment and Plan: treated with colonoscopy abdominal less distended and better tolerating diet discharge soon (2) Chronic constipation: Code(s): K59.09 - Other constipation Status: Acute Assessment and Plan: he can use stool softener with laxative as needed (3) Adynamic ileus: Code(s): K56.0 - Paralytic ileus Status: Acute Subjective Date/time seen: 08/07/23 12:57 Interval history: no nausea, tolerating diet Review of Systems Review of Systems: All systems reviewed & are unremarkable except as noted in HPI and below Exam Const: General: comfortable and no acute distress HENMT: Face/Nose/Sinus: Normal nares present Eyes: General: appearance normal, both eyes and all related structures Neck: Neck: supple Resp: Auscultation: clear to auscultation bilaterally Cardio: Rate: regular rate Rhythm: regular rhythm GI: GI Palp: Yes Soft to palpation, No Tenderness to palpation present (GI) and No Guarding due to palpation present (GI) Auscultation: normal bowel sounds Other: less distended and comfortable Skin: General skin exam: normal color Neuro: Speech: normal speech Motor exam (neuro): 5/5 motor strength present throughout Extrem: General: normal to inspection Psych: Affect: normal affect Objective Data Vital Signs Vital Signs: Vital Signs - 24 hr 08/06/23 14:00 08/06/23 20:26 08/06/23 22:38 Temperature 97.8 F 97.6 F Pulse Rate 85 85 83 Respiratory Rate 16 16 Blood Pressure 112/67 125/70 Pulse Oximetry 96 96 Oxygen Delivery 08/06/23 20:00 08/07/23 06:31 08/07/23 08:28 Temperature 97.5 F L Pulse Rate 83 77 77 Respiratory Rate 16 16 Blood Pressure 126/74 121/74 Pulse Oximetry 96 95 95 Oxygen Delivery Room Air 08/07/23 08:29 08/07/23 08:30 Temperature Pulse Rate 77 Respiratory Rate Blood Pressure Pulse Oximetry Oxygen Delivery Room Air Intake/Output Intake/Output: Intake & Output 08/04/23 08/05/23 08/06/23 08/07/23 23:59 23:59 23:59 23:59 Intake Total 1170 2390 590 Output Total 800 800 Balance 1170 1590 -210 Meds/Results Medications: Active Medications Generic Name Dose Route Start Last Admin Trade Name Elizabet PRN Reason Stop Dose Admin Aspirin 81 mg 08/04/23 08:00 08/07/23 08:31 Aspirin 81 Mg Chewable Tablet PO 81 mg DAILY@0800 [facility] Administration Benztropine Mesylate 1 mg 08/04/23 09:00 08/07/23 08:30 Benztropine Mesylate 1 Mg Tablet PO 1 mg BID [facility] Administration Bisacodyl 10 mg 08/04/23 09:02 Bisacodyl 10 Mg Suppository RECTAL DAILY PRN Constipation Carbamazepine 400 mg 08/03/23 23:25 08/06/23 20:26 Carbamazepine 200 Mg Tablet BY MOUTH 400 mg HS [facility] Administration Carvedilol 3.125 mg 08/03/23 23:15 08/07/23 08:29 Carvedilol 3.125 Mg Tablet PO 3.125 mg Q12HR [facility] Administration Enoxaparin Sodium 40 mg 08/04/23 09:00 08/07/23 08:41 Enoxaparin 40 Mg/0.4 Ml Syringe SUB-Q 40 mg DAILY [facility] Administration Famotidine 40 mg 08/04/23 09:00 08/07/23 08:30 Famotidine 20 Mg Tablet PO 40 mg DAILY [facility] Administration Levothyroxine Sodium 112 mcg 08/05/23 06:30 08/07/23 06:30 Levothyroxine Sodium 112 Mcg Tablet PO 112 mcg DAILY@0630 [facility] Administration Loratadine 10 mg 08/04/23 09:00 08/07/23 08:30 Loratadine 10 Mg Tablet PO 10 mg DAILY [facility] Administration Lorazepam 1 mg 08/03/23 23:15 Lorazepam (*Crx) 1 Mg Tablet PO BID PRN Anxiety Polyethylene Glycol 17 gm 08/08/23 09:00 Polyethylene Glycol 3350 17 Gm Powd.Pack PO DAILY [facility] Pravastatin Sodium 80 mg 08/04/23 09:00 08/07/23 08:29 Pravastatin Sodium 20 Mg Tablet PO 80 mg DAILY [facility] Administration Senna 8.6 mg 08/03/23 23:15 08/06/23 12:06 Sennosides 8.6 Mg Tablet
--- NOTE | 2023-08-07 13:06 | PC.NURSE ---
On 08/07/23, the student, [Sadiq Sutton], provided care and completed [facility] documentation on this patient. I have reviewed the student's documentation and agree with the findings.
[2023-08-07 13:54] VITALS: BP 120/73; PULSE 80; RESP 16; TEMP 36.4; O2SAT 97
== END 2023-08-07 14:50 | DRG 389 ==
PROVIDERS: Internal Medicine Gastroenterology; Nurse Practitioner Acute Care; Physician Assistant; Admitting Provider Internal Medicine; PCP Family Medicine; Visit Provider Internal Medicine
PROC: 0DJD8ZZ Inspection of Lower Intestinal Tract, Via Natural or Artificial Opening Endoscopic (ICD-10-PCS; CPT 45378; principal; 2023-08-05 14:00)
DX: K56.41 Fecal impaction (principal); K56.0 Paralytic ileus; D64.9 Anemia, unspecified; E78.5 Hyperlipidemia, unspecified; F20.9 Schizophrenia, unspecified; F41.9 Anxiety disorder, unspecified; I10 Essential (primary) hypertension; Z79.82 Long term (current) use of aspirin
CPT/HCPCS: 36415; 74018; 80048; 80053; 82607; 82728; 82746; 83540; 83550; 83735; 84100; 84134; 84439; 84443; 84480; 85025; 96372; 97110; 97161; 97165; 97530; 97535; A9270; G0378; G0379; J0330; J1650; J2704; J3480; J7030; J7040; J7120